=== PATIENT | male | born 1940 | race Caucasian/White ===

== ENCOUNTER 2023-07-10 19:17 | Inpatient (IN) | payer MEDICARE, SELFPAY ==
[2023-07-10] VITALS (22 sets, daily range): BP systolic 95–115; BP diastolic 56–82; PULSE 89–105; RESP 18–26; TEMP 37.1–37.9; O2SAT 89–95; BMI 23.4
--- NOTE | 2023-07-10 19:42 | XR_ITS ---
Patient: BRIAN MARTELL Facility:?[facility] Patient ID:?[id number] Site Patient ID:?[id number]. Site :?[id number] Study:?XRay-Chest PA and lateral-07/10/2023 9:29:17 PM Ordering Physician:Deon Monsivais Final Report: Indication: Fever of unknown origin Technique: Two views of the chest Comparison: None Findings/Impression: No acute cardiopulmonary process detected. Dictated by Theodore Henriquez MD @ 07/10/2023 9:45:44 PM Signed by:?Theodore Henriquez MD @07/10/2023 9:45:44 PM (Electronic Signature)
--- NOTE | 2023-07-10 19:44 | ED.GENADULT ---
HPI - General Adult General Chief complaint: Shortness of Breath/Dyspnea Stated complaint: Lung infection, lethargy, dehydrated Time Seen by Provider: 07/10/23 19:18 Source: patient Limitations: no limitations History of Present Illness HPI narrative: 82-year-old male brought in by his son and [id number] for weakness. His son states that he had to get him out of his bed today to come the hospital because he did not get out of bed all day long. Patient has been sick since the end of May with upper respiratory symptoms, productive cough and weakness. Per his son he was treated with a a steroid and an antibiotic-appears to have been doxycycline, and did not get better. He return for re-evaluation and the provider reordered more doxycycline and added azithromycin. This was 2 days ago. In the last 2 days he has continued to get worse. He has very little appetite. He lives with his daughter who is not here today. He has been having fevers, last 1 was 102 earlier today. Patient gets his care at [facility]. The last time they were there there was a long ER wait so therefore family brought him here today. His past medical history is significant for hypertension, COPD, GERD, esophagitis, hyperlipidemia, chronic anemia, hypertrophy of the prostate, cervicalgia. Related Data Home Medications Medication Instructions Recorded Confirmed atenolol 50 mg tablet 50 mg PO DAILY 07/10/23 07/10/23 loratadine 10 mg tablet (Claritin) 10 mg PO DAILY 07/10/23 07/10/23 losartan 100 mg tablet (Cozaar) 100 mg PO DAILY 07/10/23 07/10/23 omeprazole 20 mg capsule,delayed 20 mg PO DAILY 07/10/23 07/10/23 release simvastatin 20 mg tablet 20 mg PO DAILY 07/10/23 07/10/23 Allergies Allergy/AdvReac Type Severity Reaction Status Date / Time aspirin Allergy Unknown Verified 07/10/23 19:27 Penicillins Allergy Unknown Verified 07/10/23 19:27 Review of Systems Status of ROS: Reports: 10 or more systems reviewed and unremarkable except as noted in History and below Exam Narrative: Exam Narrative: Thin, frail elderly patient in no acute distress. Answers questions appropriately, cooperative. Mood and affect are appropriate. Thoughts are goal oriented and rational. No tangential or magical thinking noted. Patient speaks in full sentences without needing to catch his breath. HEENT: Normocephalic atraumatic. Pupils are equally round reactive to light. Extraocular muscles are intact. Conjunctivae are moist without any icterus noted. Dry mucous membranes. Cardiovascular: Heart is regular rate and rhythm S1 and S2 are present without any murmurs. Lungs: Decreased breath sounds bilaterally. Patient takes deep breaths without discomfort. Abdomen: Soft and nontender nondistended with normal bowel sounds. No guarding or rebound. He does have a nontender soft mass just distal to the suprapubic area. Extremities: Bilateral lower extremities are without edema. Skin: Well perfused without any obvious rashes. Back: Normal appearance. He has some mild skin breakdown of the intergluteal cleft. Const: Vital Signs, click to edit/add: Vital Signs - 24 hr 07/10/23 19:22 07/10/23 20:08 07/10/23 20:21 Temperature 98.7 F Pulse Rate 100 96 Pulse Rate [Pulse Oximeter] 105 H Respiratory Rate 26 H Blood Pressure Blood Pressure [Le ft Upper Arm] 106/82 Pulse Oximetry 94 94 95 Oxygen Delivery Me thod Room Air 07/10/23 20:30 07/10/23 20:45 07/10/23 21:18 Temperature Pulse Rate 99 95 99 Pulse Rate [Pulse Oximeter] Respiratory Rate Blood Pressure 101/75 Blood Pressure [Le ft Upper Arm] Pulse Oximetry 94 94 93 Oxygen Delivery Me thod 07/10/23 21:19 07/10/23 21:30 07/10/23 21:34 Temperature Pulse Rate 101 H 90 90 Pulse Rate [Pulse Oximeter] Respiratory Rate Blood Pressure 105/59 L Blood Pressure [Le ft Upper Arm] Pulse Oximetry 93 91 90 Oxygen Delivery Me thod 07/10/23 21:35 07/10/23 21:45 07/10/23 22:00 Temperature Pulse Rate 89 99 99 Pulse Rate [Pulse Oximeter] Respiratory Rate Blood Pressure Blood Pressure [Le ft Upper Arm] Pulse Oximetry 89 90 92 Oxygen Delivery Me thod 07/10/23 22:01 07/10/23 22:15 07/10/23 22:30 Temperature Pulse Rate 99 95 93 Pulse Rate [Pulse Oximeter] Respiratory Rate Blood Pressure 95/56 L Blood Pressure [Le ft Upper Arm] Pulse Oximetry 91 91 90 Oxygen Delivery Me thod 07/10/23 22:32 07/10/23 22:57 07/10/23 23:00 Temperature Pulse Rate 92 90 90 Pulse Rate [Pulse Oximeter] Respiratory Rate Blood Pressure 115/62 Blood Pressure [Le ft Upper Arm] Pulse Oximetry 90 91 90 Oxygen Delivery Me thod 07/10/23 23:02 Temperature Pulse Rate Pulse Rate [Pulse Oximeter] Respiratory Rate Blood Pressure 105/73 Blood Pressure [Le ft Upper Arm] Pulse Oximetry Oxygen Delivery Me thod Course Course ED Course: IV is established and patient is started on normal saline. EKG, read by me, shows sinus tachycardia with a pulse of 102. CBC shows a white count of 19.76, hemoglobin 13.3, platelet count is 330. Sodium potassium were unremarkable. BUN 34, creatinine is 1.2. Glucose is 134. lactate is elevated at 2.6. His AST is elevated at 393, ALT is 216, alkaline phosphatase is 187. Total bili is elevated at 2.4, direct bili elevated at 1.3. Troponin is elevated at 0.16. Triple swab is negative. CRP is markedly elevated at 34.8. UA does not show evidence of infection. Blood cultures were drawn. Vancomycin was started. Chest abdomen and pelvic was done: No evidence of pneumonia, PE or intra-abdominal infection. He does have a possible hernia noted. However, this does not cause him any discomfort on physical exam. Repeat troponin elevated at 0.18 and repeat lactate improved. Consulted with Dr. Huitron who is in agreement with admission. Vital Signs Vital signs: Initial Vital Signs Temperature 98.7 F 07/10/23 19:22 Temperature Source Temporal Artery Scan 07/10/23 19:22 Pulse Rate 105 H 07/10/23 19:22 Respiratory Rate 26 H 07/10/23 19:22 Blood Pressure 106/82 07/10/23 19:22 Blood Pressure Mean 90 07/10/23 19:22 Blood Pressure Position Sitting 07/10/23 19:22 Pulse Oximetry 94 07/10/23 19:22 Oxygen Delivery Method Room Air 07/10/23 19:22 Vital Signs Temperature 98.7 F 07/10/23 19:22 Pulse Rate 105 H 07/10/23 19:22 Respiratory Rate 26 H 07/10/23 19:22 Blood Pressure 106/82 07/10/23 19:22 Pulse Oximetry 94 07/10/23 19:22 Oxygen Delivery Method Room Air 07/10/23 19:22 Temperature 98.7 F 07/10/23 19:22 Pulse Rate 90 07/10/23 23:00 Respiratory Rate 26 H 07/10/23 19:22 Blood Pressure 105/73 07/10/23 23:02 Pulse Oximetry 90 07/10/23 23:00 Oxygen Delivery Method Room Air 07/10/23 19:22 Medications Administered Medications: Discontinued Medications Generic Name Dose Route Start Last Admin Trade Name Freq PRN Reason Stop Dose Admin Sodium Chloride 500 mls @ 500 mls/hr 07/10/23 19:42 07/10/23 22:12 0.9 % Sodium Chloride 500 Ml IV 07/10/23 20:41 Not Given .Q1H ONE Sodium Chloride 1,000 mls @ 1,000 mls/hr 07/10/23 20:30 07/10/23 21:25 0.9 % Sodium Chloride 1000 Ml IV 07/10/23 21:29 Infused .Q1H NEYMAR Infusion Vancomycin HCl 1,250 mg/ 512.5 mls @ 256.25 mls/hr 07/10/23 20:24 07/10/23 21:59 Sodium Chloride IVPB 07/10/23 20:25 256.25 mls/hr ONCE ONE Administration Protocol Sodium Chloride 500 mls @ 500 mls/hr 07/10/23 22:10 07/10/23 22:20 0.9 % Sodium Chloride 500 Ml IV 07/10/23 23:09 500 mls/hr .Q1H ONE Administration Medical Decision Making MDM Narrative Medical decision making narrative: 82-year-old male presenting with signs of sepsis, fever of unknown origin. Patient will be admitted for further management. Of note, blood and urine cultures are pending at this time. Lab Data Lab results reviewed: Yes I reviewed the patient's lab results Labs: Lab Results 07/10/23 07/10/23 07/10/23 Range/Units 19:40 21:39 21:50 WBC 19.76 H (4.50-11.00) K/uL RBC 4.38 (4.30-5.90) m/uL Hgb 13.3 L (13.5-17.5) gm/dL Hct 40.0 (37.0-53.0) % MCV 91 (80-100) fL MCH 30 (26-34) pg MCHC 33 (32-36) gm/dL RDW Coeff of Marcell 14.1 (11.5-15.5) % Plt Count 330 (140-440) K/uL Neut % (Auto) 75.8 H (42.0-72.0) % Lymph % (Auto) 19.1 L (20-44) % [place] % (Auto) 4.1 (0.0-11.0) % Eos % (Auto) 0.4 (0.0-7.0) % Baso % (Auto) 0.2 (0.0-3.0) % Neut # (Auto) 15.00 H (1.7-7.0) K/uL Lymph # (Auto) 3.80 H (0.90-2.90) K/uL [place] # (Auto) 0.80 (0.00-0.90) K/UL Eos # (Auto) 0.10 (0.00-0.50) K/uL Baso # (Auto) 0.00 (0.00-0.30) K/uL Abs Immat Gran (auto) 0.10 (0.00-0.30) K/uL Imm/Tot Granulo (auto) 0.4 % Sodium 140 (135-149) mmol/L Potassium 4.2 (3.6-5.1) mmol/L Chloride 103 (96-114) mmol/L Carbon Dioxide 27 (20-32) mmol/L Anion Gap 10 (7-15) mEq/L BUN 34 H (7-30) mg/dL Creatinine 1.2 (0.5-1.5) mg/dL Estimated GFR 61 ml/min Glucose 134 H (60-115) mg/dL Lactate 2.6 H 1.2 (0.5-1.9) mmol/L Calcium 10.0 (8.4-10.6) mg/dL Total Bilirubin 2.4 H (0.1-1.5) mg/dL Direct Bilirubin 1.3 H (0.0-0.5) mg/dL AST 393 H (12-35) U/L ALT 216 H (4-50) U/L Alkaline Phosphatase 187 H (40-150) U/L Troponin I 0.16 H* 0.18 H* (0.01-0.04) ng/mL C-Reactive Protein 34.8 H (0.5-1.0) mg/dL Total Protein 8.5 H (6.0-8.3) g/dL Albumin 4.2 (3.3-5.0) g/dL Lipase 146 (23-300) U/L Urine Color [place] A (Yellow) Urine Appearance Clear (Clear) Urine pH 5.5 (5.0-8.5) Ur Specific [place] 1.025 (1.000-1.030) Urine Protein 2+ A (Negative) Urine Glucose (UA) Negative (Negative) Urine Ketones 1+ A (Negative) Urine Blood Negative (Negative) Urine Nitrite Negative (Negative) Urine Bilirubin 1+ A (Negative) Urine Urobilinogen 1.0 (0.2-1.0) Ur Leukocyte Esterase Negative (Negative) Urine RBC 0-2 (0-2) Urine WBC 0-2 (0-5) Ur Squamous Epith Cells Many A (None-Few) Urine Bacteria None (None) Urine Mucus Many A (None) Ethyl Alcohol < 0.01 L (0.01-0.03) % SARS-CoV-2 (PCR) Negative SARS-CoV-2 (Negative) Influenza Type A (PCR) Negative PCR FLU A (Negative) Influenza Type B (PCR) Negative PCR FLU B (Negative) RSV (PCR) Negative PCR RSV (Negative) Imaging Data CT Chest/Ab/Pelvis: Attestation: I have reviewed the pertinent imaging results. Radiologist's impression: CTA of the chest and postcontrast CT of the abdomen and pelvis with multiplanar reformats following 95 mL Isovue 370 IV. Comparison: None Findings: Chest: Pulmonary arteries: Significant motion degradation. No large or central pulmonary embolism is appreciated. Lungs: No consolidation. No effusion. No pneumothorax. Apical predominant moderate centrilobular and paraseptal emphysema. Basilar predominant fibrotic changes. Mediastinum: No acute abnormality appreciated. Calcified atherosclerosis. Lymph nodes: No gross lymphadenopathy. Soft tissues: No acute abnormality appreciated. Bones: No acute abnormality appreciated. Abdomen and Pelvis: Hepatobiliary: No significant parenchymal abnormality is appreciated. Spleen: Unremarkable. Pancreas: No acute abnormality appreciated. Adrenal glands: No acute abnormality appreciated. Kidneys: No significant parenchymal abnormality appreciated. No visualized calculi. No hydronephrosis. Bowel: Diverticulosis without evidence of acute diverticulitis. No obstruction. No focal perienteric or pericolonic stranding is appreciated. The appendix is visualized and appears unremarkable. Vascular: No acute abnormality appreciated. Calcified atherosclerosis. Lymph nodes: No gross lymphadenopathy. Peritoneum: No free air. No free fluid. : No acute abnormality appreciated. Soft tissues: There is a large edematous fatty lesion, possibly an incarcerated hernia, noted along the left ventral pelvis anterior to the pubic symphysis measuring 8.3 x 4.1 centimeters. Bones: No acute fracture. No lytic or blastic lesion. Degenerative changes of the spine and pelvis. Impression: 1. Significant respiratory motion degradation through the chest. No large or central PE is present. 2. There is a large edematous fatty lesion along the ventral pelvis anterior to the pubic symphysis measuring up to 8.3 centimeters, possibly an incarcerated hernia common no prior examination available for comparison. 3. Additional chronic findings as above with no other acute abnormality appreciated. Chest x-ray: Attestation: I have reviewed the pertinent imaging results. Radiologist's impression: Indication: Fever of unknown origin Technique: Two views of the chest Comparison: None Findings/Impression: No acute cardiopulmonary process detected. ECG Data Attestation: I personally reviewed and interpreted this ECG as follows: Discharge Plan Discharge Prescriptions: No Action atenolol 50 mg tablet 50 mg PO DAILY simvastatin 20 mg tablet 20 mg PO DAILY omeprazole 20 mg capsule,delayed release(DR/EC) 20 mg PO DAILY losartan [Cozaar] 100 mg tablet 100 mg PO DAILY loratadine [Claritin] 10 mg tablet 10 mg PO DAILY
[2023-07-10 19:51] LABS: Lactate* 2.6 mmol/L (0.5-1.9)
[2023-07-10 19:52] LABS: Basophils Percent Auto 0.2 % (0.0-3.0); Eosinophils Percent Auto 0.4 % (0.0-7.0); Hemoglobin* 13.3 gm/dL (13.5-17.5); Immature Granulocytes Pct Auto 0.4 %; Lymphocytes Percent Auto 19.1 % (20-44); Mean Corpuscular HGB Conc 33 gm/dL (32-36); Mean Corpuscular Hemoglobin 30 pg (26-34); Mean Corpuscular Volume 91 fL (80-100); Monocytes Percent Auto 4.1 % (0.0-11.0); Neutrophils Percent Auto 75.8 % (42.0-72.0); Platelet Count* 330 K/uL (140-440); RDW Coefficient of Variation % 14.1 % (11.5-15.5); Red Blood Count 4.38 m/uL (4.30-5.90); White Blood Count* 19.76 K/uL (4.50-11.00)
[2023-07-10 19:55] LABS: Slide Review Reflex No
[2023-07-10 20:09] LABS: Albumin* 4.2 g/dL (3.3-5.0); Chloride* 103 mmol/L (96-114)
[2023-07-10 20:10] LABS: Potassium* 4.2 mmol/L (3.6-5.1); Sodium* 140 mmol/L (135-149)
[2023-07-10 20:12] LABS: Alkaline Phosphatase* 187 U/L (40-150); Anion Gap 10 mEq/L (7-15); Aspartate Amino Transferase* 393 U/L (12-35); Bilirubin Direct* 1.3 mg/dL (0.0-0.5); Bilirubin Total* 2.4 mg/dL (0.1-1.5); Carbon Dioxide* 27 mmol/L (20-32); Creatinine* 1.2 mg/dL (0.5-1.5); Estimated Glomerular Filt Rate 61 ml/min; Total Protein* 8.5 g/dL (6.0-8.3)
[2023-07-10 20:13] LABS: Alanine Aminotransferase* 216 U/L (4-50); Blood Urea Nitrogen* 34 mg/dL (7-30); Glucose* 134 mg/dL (60-115); Lipase* 146 U/L (23-300)
[2023-07-10 20:16] LABS: Ethanol* < 0.01 % (0.01-0.03)
--- NOTE | 2023-07-10 20:28 | CT_ITS ---
Patient: BRIAN MARTELL Facility:?[facility] Patient ID:?[id number] Site Patient ID:?[id number]. Site :?[id number] Study:?CT-Chest/Abd/Pelvis with PE protocol 95cc [id number]/16/2024 9:28:18 PM Ordering Physician:Deon Monsivais Final Report: Indication: Fever of unknown origin Technique: CTA of the chest and postcontrast CT of the abdomen and pelvis with multiplanar reformats following 95 mL Isovue 370 IV. Comparison: None Findings: Chest: Pulmonary arteries: Significant motion degradation. No large or central pulmonary embolism is appreciated. Lungs: No consolidation. No effusion. No pneumothorax. Apical predominant moderate centrilobular and paraseptal emphysema. Basilar predominant fibrotic changes. Mediastinum: No acute abnormality appreciated. Calcified atherosclerosis. Lymph nodes: No gross lymphadenopathy. Soft tissues: No acute abnormality appreciated. Bones: No acute abnormality appreciated. Abdomen and Pelvis: Hepatobiliary: No significant parenchymal abnormality is appreciated. Spleen: Unremarkable. Pancreas: No acute abnormality appreciated. Adrenal glands: No acute abnormality appreciated. Kidneys: No significant parenchymal abnormality appreciated. No visualized calculi. No hydronephrosis. Bowel: Diverticulosis without evidence of acute diverticulitis. No obstruction. No focal perienteric or pericolonic stranding is appreciated. The appendix is visualized and appears unremarkable. Vascular: No acute abnormality appreciated. Calcified atherosclerosis. Lymph nodes: No gross lymphadenopathy. Peritoneum: No free air. No free fluid. : No acute abnormality appreciated. Soft tissues: There is a large edematous fatty lesion, possibly an incarcerated hernia, noted along the left ventral pelvis anterior to the pubic symphysis measuring 8.3 x 4.1 centimeters. Bones: No acute fracture. No lytic or blastic lesion. Degenerative changes of the spine and pelvis. Impression: 1. Significant respiratory motion degradation through the chest. No large or central PE is present. 2. There is a large edematous fatty lesion along the ventral pelvis anterior to the pubic symphysis measuring up to 8.3 centimeters, possibly an incarcerated hernia common no prior examination available for comparison. 3. Additional chronic findings as above with no other acute abnormality appreciated. Please note that all CT scans at this facility use dose modulation, iterative reconstruction, and/or weight-based dosing when appropriate to reduce radiation dose to as low as reasonably achievable. Dictated by Theodore Henriquez MD @ 07/10/2023 9:44:51 PM Signed by:?Theodore Henriquez MD @07/10/2023 9:44:51 PM (Electronic Signature)
[2023-07-10 20:29] LABS: PCR FLU A Negative PCR FLU A (Negative); PCR FLU B Negative PCR FLU B (Negative); PCR RSV Negative PCR RSV (Negative); SARS PCR* Negative SARS-CoV-2 (Negative); Troponin I* 0.16 ng/mL (0.01-0.04)
--- NOTE | 2023-07-10 20:34 | ED.NURSE ---
call from lab, trop 0.16, dr webb and care nurse updated
[2023-07-10] MEDS: 0.9 % SODIUM CHLORIDE 1000 ml 1,000 ML IV (20:35)
[2023-07-10 20:42] LABS: C Reactive Protein* 34.8 mg/dL (0.5-1.0)
[2023-07-10 21:42] LABS: Lactate* 1.2 mmol/L (0.5-1.9)
[2023-07-10 22:05] LABS: Appearance Urine Clear (Clear); Bilirubin Urine 1+ (Negative); Blood Urine Negative (Negative); Color Urine Orange (Yellow); Glucose Urine Negative (Negative); Ketones Urine 1+ (Negative); Leukocyte Esterase Urine Negative (Negative); Nitrite Urine Negative (Negative); Protein Urine 2+ (Negative); Specific Gravity Urine 1.025 (1.000-1.030); pH Urine 5.5 (5.0-8.5)
[2023-07-10 22:15] LABS: Troponin I* 0.18 ng/mL (0.01-0.04)
[2023-07-10 22:16] LABS: Mucus Urine Many; RBC Urine 0-2 (0-2); Squamous Epithelial Cell Urine Many (None-Few); WBC Urine 0-2 (0-5)
[2023-07-10] MEDS: 0.9 % SODIUM CHLORIDE 500 ML 500 ML IV (22:20)
--- NOTE | 2023-07-10 23:12 | P.IMHP_ITS ---
Hospitalist- H&P: HPI History of Present Illness Date Seen: 07/10/23 Chief complaint: Lung infection, lethargy, dehydrated Narrative: Brian Martell is a 82 year old male with hypertension and hyperlipidemia and history of liposarcoma admitted to the hospital with a 3 to four-week history of fatigue, weakness, cough, dyspnea, loss of appetite and fever in the last day or 2. Patient was seen in the [place] [facility] on June 21 2023 with cough, congestion, fatigue, weakness, poor appetite that started about 3 days prior to going to clinic. Testing for influenza and COVID was negative. At that time he was diagnosed with a respiratory infection and treated with doxycycline 100 mg b.i.d., prednisone 40 mg for 5 days followed by 20 mg for 5 days and albuterol inhaler. He had no improvement in his symptoms and return to clinic on July 07 where he had refill of the doxycycline prescription. At that time he had a chest x-ray that showed no acute infiltrate. In the last 2 days he is gotten weaker to the point he was unable to get out of bed today he has also developed fever in the last 1-2 days. His jthznebu-mi-tke measured a temperature of a 102.4 ? F today. He reports still having some cough, sometimes productive. He still reports being short of breath prominently fatigued and very weak. He has no appetite. He is not having any chest pain. He is not having any abdominal pain. He reports he is able to eat although he has some pain in his throat with swallowi ng particularly solid foods. He is eating a soft diet and able to swallow it but reports that he eats very little and then he feels full. He is not vomiting. Bowel movements are normal although he does occasionally have a loose stool. He is not having any urinary symptoms. Does not have a skin rash. He has had significant weight loss in the last 3 weeks. On June 21 he weighed 70.9 kg. Today he weighs 65.8 kg, a 5 kg weight loss in 3 weeks. He has a diagnosis of COPD. He he was previously a smoker having quit in 1996. He has not been on chronic therapy for COPD. He has abnormal transaminases and bilirubin. He denies any abdominal pain, just very poor appetite. He drinks 2 beers per day. He reports no alcohol consumption in the last couple weeks. No recent travel history. No previous history of jaundice or liver disease. No recent travel or other exposures. Review of Systems Narrative: History is unremarkable except as noted above [facility] Medical History (Updated 07/10/23 @ 23:41 by Karthik Huitron MD) BPH (benign prostatic hyperplasia) ?N40.0 - Benign prostatic hyperplasia without lower urinary tract symptoms (ICD-10) Hyperlipidemia ?E78.5 - Hyperlipidemia, unspecified (ICD-10) Hypertension ?I10 - Essential (primary) hypertension (ICD-10) COPD (chronic obstructive pulmonary disease) ?J44.9 - Chronic obstructive pulmonary disease, unspecified (ICD-10) Surgical History (Updated 07/10/23 @ 23:35 by Karthik Huitron MD) History of colonoscopy ?Z98.890 - Other specified postprocedural states (ICD-10) History of unilateral orchiectomy ?Z90.79 - Acquired absence of other genital organ(s) (ICD-10) Family History (Updated 07/10/23 @ 23:33 by Karthik Huitron MD) Brother Prostate cancer Daughter Asthma Father Lung cancer Mother Asthma Social History (Updated 07/10/23 @ 23:36 by Karthik Huitron MD) Narrative: He lives in [place]. His daughter lives with him. He presents to the emergency department with his son and daughter in-law. Former history of smoking having quit in 1996. He drinks 2 beers a day. He was functioning independently up until the last few days when he became too weak. Meds Home Medications and Allergies Home Medications Medication Instructions Recorded Confirmed Type atenolol 50 mg tablet 50 mg PO DAILY 07/10/23 07/10/23 History loratadine 10 mg tablet (Claritin) 10 mg PO DAILY 07/10/23 07/10/23 History losartan 100 mg tablet (Cozaar) 100 mg PO DAILY 07/10/23 07/10/23 History omeprazole 20 mg capsule,delayed 20 mg PO DAILY 07/10/23 07/10/23 History release simvastatin 20 mg tablet 20 mg PO DAILY 07/10/23 07/10/23 History Allergies Allergy/AdvReac Type Severity Reaction Status Date / Time aspirin Allergy Unknown Verified 07/10/23 19:27 Penicillins Allergy Unknown Verified 07/10/23 19:27 Exam Narrative: Exam Narrative: He is alert and appears in no distress. He gives his own history. Eyes are normal. Oropharynx with dry mucous membranes. Otherwise normal. Neck is supple without mass or adenopathy. No tenderness. Respirations are clear to auscultation. He has diminished breath sounds without wheezing rales or rhonchi. Cardiovascular: S1, S2, regular rate and rhythm. No murmur gallop or rub. Abdomen: Bowel sounds active. Abdomen is soft without tenderness or mass. He does have a soft tissue mass in the pre pubic area just to the left of midline. Several cm in diameter. External genitalia unremarkable except for history of orchiectomy. He has no lower extremity edema. He has intact pedal pulses. Strength testing shows weakness and pain with strength testing of the left knee. Left knee is weak and painful with active extension and flexion. Otherwise nonfocal motor exam. Const: Vital Signs, click to edit/add: Vital Signs - 24 hr 07/10/23 19:22 07/10/23 20:08 07/10/23 20:21 Temperature 98.7 F Pulse Rate 100 96 Pulse Rate [Pulse Oximeter] 105 H Respiratory Rate 26 H Blood Pressure Blood Pressure [Le ft Upper Arm] 106/82 Pulse Oximetry 94 94 95 Oxygen Delivery Me thod Room Air 07/10/23 20:30 07/10/23 20:45 07/10/23 21:18 Temperature Pulse Rate 99 95 99 Pulse Rate [Pulse Oximeter] Respiratory Rate Blood Pressure 101/75 Blood Pressure [Le ft Upper Arm] Pulse Oximetry 94 94 93 Oxygen Delivery Me thod 07/10/23 21:19 07/10/23 21:30 07/10/23 21:34 Temperature Pulse Rate 101 H 90 90 Pulse Rate [Pulse Oximeter] Respiratory Rate Blood Pressure 105/59 L Blood Pressure [Le ft Upper Arm] Pulse Oximetry 93 91 90 Oxygen Delivery Me thod 07/10/23 21:35 07/10/23 21:45 07/10/23 22:00 Temperature Pulse Rate 89 99 99 Pulse Rate [Pulse Oximeter] Respiratory Rate Blood Pressure Blood Pressure [Le ft Upper Arm] Pulse Oximetry 89 90 92 Oxygen Delivery Me thod 07/10/23 22:01 07/10/23 22:15 Temperature Pulse Rate 99 95 Pulse Rate [Pulse Oximeter] Respiratory Rate Blood Pressure 95/56 L Blood Pressure [Le ft Upper Arm] Pulse Oximetry 91 91 Oxygen Delivery Me thod Documenting provider has reviewed patient's vital signs: yes Hospitalist - H&P: Result Labs Labs: Short CBC 07/10/23 Range/Units 19:40 WBC 19.76 H (4.50-11.00) K/uL Hgb 13.3 L (13.5-17.5) gm/dL Hct 40.0 (37.0-53.0) % Plt Count 330 (140-440) K/uL BMP 07/10/23 19:40 Sodium 140 Potassium 4.2 Chloride 103 Carbon Dioxide 27 BUN 34 H Creatinine 1.2 Glucose 134 H Calcium 10.0 Cardiac Enzymes 07/10/23 07/10/23 Range/Units 19:40 21:39 Troponin I 0.16 H* 0.18 H* (0.01-0.04) ng/mL Liver Function 07/10/23 Range/Units 19:40 Total Bilirubin 2.4 H (0.1-1.5) mg/dL Direct Bilirubin 1.3 H (0.0-0.5) mg/dL AST 393 H (12-35) U/L ALT 216 H (4-50) U/L Alkaline Phosphatase 187 H (40-150) U/L Albumin 4.2 (3.3-5.0) g/dL Urine 07/10/23 Range/Units 21:50 Urine Color [place] A (Yellow) Urine Appearance Clear (Clear) Urine pH 5.5 (5.0-8.5) Ur Specific [place] 1.025 (1.000-1.030) Urine Protein 2+ A (Negative) Urine Glucose (UA) Negative (Negative) Imaging CT Chest/Ab/Pelvis: Radiologist's impression: Patient: BRIAN MARTELL Facility:?[facility] Patient ID:?[id number] Site Patient ID:?[id number]. Site :?[id number] Study:?CT Chest/Abd/Pelvis with PE protocol 95cc [id number]/16/2024 9:28:18 PM Ordering Physician:Deon Monsivais Final Report: Indication: Fever of unknown origin Technique: CTA of the chest and postcontrast CT of the abdomen and pelvis with multiplanar reformats following 95 mL Isovue 370 IV. Comparison: None Findings: Chest: Pulmonary arteries: Significant motion degradation. No large or central pulmonary embolism is appreciated. Lungs: No consolidation. No effusion. No pneumothorax. Apical predominant moderate centrilobular and paraseptal emphysema. Basilar predominant fibrotic changes. Mediastinum: No acute abnormality appreciated. Calcified atherosclerosis. Lymph nodes: No gross lymphadenopathy. Soft tissues: No acute abnormality appreciated. Bones: No acute abnormality appreciated. Abdomen and Pelvis: Hepatobiliary: No significant parenchymal abnormality is appreciated. Spleen: Unremarkable. Pancreas: No acute abnormality appreciated. Adrenal glands: No acute abnormality appreciated. Kidneys: No significant parenchymal abnormality appreciated. No visualized calculi. No hydronephrosis. Bowel: Diverticulosis without evidence of acute diverticulitis. No obstruction. No focal perienteric or pericolonic stranding is appreciated. The appendix is visualized and appears unremarkable. Vascular: No acute abnormality appreciated. Calcified atherosclerosis. Lymph nodes: No gross lymphadenopathy. Peritoneum: No free air. No free fluid. : No acute abnormality appreciated. Soft tissues: There is a large edematous fatty lesion, possibly an incarcerated hernia, noted along the left ventral pelvis anterior to the pubic symphysis measuring 8.3 x 4.1 centimeters. Bones: No acute fracture. No lytic or blastic lesion. Degenerative changes of the spine and pelvis. Impression: 1. Significant respiratory motion degradation through the chest. No large or central PE is present. 2. There is a large edematous fatty lesion along the ventral pelvis anterior to the pubic symphysis measuring up to 8.3 centimeters, possibly an incarcerated hernia common no prior examination available for comparison. 3. Additional chronic findings as above with no other acute abnormality appreci ated. Assessment and Plan Assessment and plan (1) Fever: Problem comment: No obvious source for the fever except possibly hepato-biliary. Due to elevated lactate, CRP, white blood count, fever will obtain blood cultures and start empiric antibiotics. Status: Acute (2) Abnormal liver enzymes: Problem comment: Obtain ultrasound. Possible MRCP. Trend LFTs. Status: Acute (3) Elevated troponin: Problem comment: No chest pain Status: Acute (4) Weight loss: Problem comment: 5 kg weight loss in 3 weeks Status: Acute (5) Soft tissue mass: Problem comment: Pre pubic. Possibly chronic Status: Acute (6) Weakness: Problem comment: Unable to stand and walk independently. Likely related to recent illness. Status: Acute (7) Dysphagia: Problem comment: Recent history of pain in his throat with swallowing. Status: Acute (8) COPD (chronic obstructive pulmonary disease): Problem comment: Due to remote history of cigarette smoking. Quit in 1996. 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 Three surgeries for this. Urologist signed off last November 2022 after no recurrence in 2 years. 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 Two further surgeries for local recurrence. Status: Acute (13) BPH (benign prostatic hyperplasia): Status: Acute Plan 82-year-old male presents with 3 and half week history of progressive illness with prominent fatigue, weakness, loss of appetite, loss of weight, cough, dyspnea, fever. Now found to have abnormal liver enzymes and elevated troponin. I favor hepatobiliary disease as the most likely explanation for his illness. Continue to evaluate and follow multiple problems noted above. Total Time Spent Total Time Spent: Total time spent today is 80 minutes, 50 minutes in coordination of care discussing with patient, family and other providers evaluation of fever, fatigue, weakness, weight loss and abnormal liver tests
[2023-07-10] MEDS: 0.9 % SODIUM CHLORIDE 1000 ml 1,000 ML 150 ML IV (23:20)
[2023-07-11] VITALS (8 sets, daily range): BP systolic 88–120; BP diastolic 51–81; PULSE 72–92; RESP 16–20; TEMP 36.1–37.7; O2SAT 88–95
[2023-07-11] MEDS: ERTAPENEM 1 GM in 0.9 % SODIUM CHLORIDE Mini-bag 100 ML IVPB (00:26)
[2023-07-11] MEDS: 5 % DEXTROSE IN LAC RINGER'S 1,000 ML 125 ML IV ×3 (00:27→17:11)
--- NOTE | 2023-07-11 05:16 | PC.NURSE ---
Shift note: Pt admitted to the unit on admission bed from ED, conscious and alert accompanied by son and daughter-myles. Pt appeared weak and tired and cough intermittently. Fever of 100.2 recorded, other vital signs were stable. Treatment given as prescribed. Pt voided about 300ml of clear urine at 0230. Pt had adequate sleep. Complained of mild pain of 3/10 to the left knee. Ambulated with A1, walker and GB to the BR. Ensure was given and pt was able to drink about 75%. Temperature decreased to 98.3 at 0300.
[2023-07-11 06:53] LABS: Lactate* 0.8 mmol/L (0.5-1.9)
[2023-07-11 07:12] LABS: Basophils Percent Auto 0.2 % (0.0-3.0); Eosinophils Percent Auto 0.4 % (0.0-7.0); Hemoglobin* 9.5 gm/dL (13.5-17.5); Immature Granulocytes Pct Auto 0.4 %; Lymphocytes Percent Auto 19.4 % (20-44); Mean Corpuscular HGB Conc 33 gm/dL (32-36); Mean Corpuscular Hemoglobin 30 pg (26-34); Mean Corpuscular Volume 92 fL (80-100); Monocytes Percent Auto 5.3 % (0.0-11.0); Neutrophils Percent Auto 74.3 % (42.0-72.0); Platelet Count* 247 K/uL (140-440); RDW Coefficient of Variation % 14.2 % (11.5-15.5); Red Blood Count 3.16 m/uL (4.30-5.90); White Blood Count* 13.45 K/uL (4.50-11.00)
[2023-07-11 07:21] LABS: Slide Review Reflex No
[2023-07-11 07:24] LABS: Albumin* 2.9 g/dL (3.3-5.0); Chloride* 109 mmol/L (96-114); Sodium* 140 mmol/L (135-149)
[2023-07-11 07:25] LABS: Potassium* 3.8 mmol/L (3.6-5.1)
[2023-07-11 07:27] LABS: Alkaline Phosphatase* 121 U/L (40-150); Anion Gap 6 mEq/L (7-15); Aspartate Amino Transferase* 222 U/L (12-35); Bilirubin Direct* 0.7 mg/dL (0.0-0.5); Bilirubin Total* 1.1 mg/dL (0.1-1.5); Blood Urea Nitrogen* 32 mg/dL (7-30); Carbon Dioxide* 25 mmol/L (20-32); Creatinine* 0.9 mg/dL (0.5-1.5); Est. Creatinine Clearance* 52.28; Estimated Glomerular Filt Rate 86 ml/min; Total Protein* 5.9 g/dL (6.0-8.3)
[2023-07-11 07:28] LABS: Alanine Aminotransferase* 152 U/L (4-50); Calcium* 8.3 mg/dL (8.4-10.6); Glucose* 156 mg/dL (60-115)
[2023-07-11 07:41] LABS: Troponin I* 0.11 ng/mL (0.01-0.04)
[2023-07-11 07:45] LABS: C Reactive Protein* 25.4 mg/dL (0.5-1.0)
--- NOTE | 2023-07-11 08:00 | US_ITS ---
Patient: BRIAN MARTELL Facility:?[facility] Patient ID:?[id number] Site Patient ID:?[id number] Site :?[id number] Study:?US-Abdomen GALLBLADDER-07/11/2023 12:27:42 AM Ordering Physician:?RYAN AQUINO Final Report: Indication: Fever, weight loss, abnormal LFTs Technique: Limited abdominal ultrasound. Evaluation of the gallbladder and common bile duct. Grayscale and color Doppler imaging utilized. Comparison: None Findings: Gallbladder: No stones or sludge. No wall thickening or adjacent fluid. Common bile duct: 5 mm. Impression: No acute sonographic abnormality of the gallbladder or common bile duct. Dictated by Theodore Henriquez MD @ 07/11/2023 12:36:03 AM Signed by:?Theodore Henriquez MD @07/11/2023 12:36:03 AM (Electronic Signature)
[2023-07-11] MEDS: OMEPRAZOLE 20 MG CAPSULE DR PO (08:51)
[2023-07-11] MEDS: atenoloL 50 MG TABLET 25 MG PO (08:52)
[2023-07-11] MEDS: SODIUM CHLORIDE 0.9 % (FLUSH) 10 ML SYRINGE 5 ML IVF ×2 (08:55→21:39)
[2023-07-11] MEDS: ACETAMINOPHEN 325 MG TABLET 650 MG PO (08:58)
[2023-07-11 09:53] LABS: Creatine Kinase* 77 U/L (54-186)
--- NOTE | 2023-07-11 13:30 | CT_ITS ---
Patient: BRIAN MARTELL Facility:?[facility] Patient ID:?[id number] Site Patient ID:?[id number]. Site :?1940 Study:?CT-Head W/O-07/11/2023 2:07:38 PM Ordering Physician:VIJAYA Final Report: Indication: Altered mental status, fever. Technique: Noncontrast CT of the head with multiplanar reconstruction utilizing bone and soft tissue algorithms. Comparison: None available. Findings: No acute intracranial hemorrhage. Scattered supratentorial white matter hypoattenuation typical of chronic small vessel ischemic changes. Mild diffuse parenchymal volume loss. No ventricular obstruction. Prominent left retro cerebellar CSF attenuating collection potentially representing an arachnoid cyst. Intact calvarium. Evidence of prior cataract surgery. The imaged paranasal sinuses and mastoid air cells are clear. Impression: 1. No acute intracranial abnormality. 2. Mild diffuse parenchymal volume loss and chronic small vessel ischemic changes. 3. Prominent left retrocerebellar CSF attenuating collection, not adequately characterized on CT but potentially representing an arachnoid cyst. Please note that all CT scans at this facility use dose modulation, iterative reconstruction, and/or weight-based dosing when appropriate to reduce radiation dose to as low as reasonably achievable. Dictated by Kenroy Martell MD @ 07/11/2023 2:40:18 PM Signed by:?Kenroy Martell MD @07/11/2023 2:40:18 PM (Electronic Signature)
--- NOTE | 2023-07-11 15:10 | P.IMPN_ITS ---
Progress Note: A&P Assessment and plan (1) Fever: Problem details: No obvious source for the fever except possibly hepato-biliary. Due to elevated lactate, CRP, white blood count, fever will obtain blood cultures and start empiric antibiotics. Status: Acute (2) Abnormal liver enzymes: Problem details: Ultrasound unremarkable. LFTs improving, acute hepatitis labs pending Status: Acute (3) Elevated troponin: Problem details: No chest pain Status: Acute (4) Weight loss: Problem details: 5 kg weight loss in 3 weeks Status: Acute (5) Soft tissue mass: Problem details: Pre pubic. Possibly chronic Status: Acute (6) Weakness: Problem details: Unable to stand and walk independently. Likely related to recent illness. Status: Acute (7) Dysphagia: Problem details: Recent history of pain in his throat with swallowing. Status: Acute (8) COPD (chronic obstructive pulmonary disease): Problem details: Due to remote history of cigarette smoking. Quit in 1996. 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 Urologist signed off last November 2022 after no recurrence in 2 years. Status: Chronic (10) Hypertension: Problem details: Hold losartan and reduce atenolol due to low blood pressure Status: Chronic (11) Hyperlipidemia: Problem details: Hold simvastatin due to abnormal liver enzymes Status: Chronic (12) BPH (benign prostatic hyperplasia): Status: Chronic Plan 83-year-old male with a 3 week history of fatigue, weakness, loss of appetite, loss of weight, cough, dyspnea, and fever was admitted 07/10/2023 for these and abnormal liver enzymes with elevated troponin. Troponin has peaked and liver enzymes are improving. Chest CT abdomen and pelvis, chest x-ray, and left upper quadrant ultrasound are fairly unremarkable with the exception of a pre pelvic mass. This does not appear to be an abscess and it is unclear, but likely unrelated to his current symptoms. He is on Zosyn and vanco, but again source of fevers is unclear. Head CT is obtained due to altered mental status and fevers without clear source, results above, essentially unremarkable. Will also obtain an echocardiogram to look for vegetations. Continue to treat with antibiotics and monitor for any new or worsening symptoms to help identify source. Continue PT and OT for weakness. Subjective Time Seen by Provider: 10:12 Date Seen: 07/11/23 Interval history: Krishan seems mildly confused, pleasant. He denies any complaints today. Exam Narrative: Exam Narrative: General: No acute distress. Awake, alert, oriented. No pallor. No jaundice. Oropharynx: Clear. Mucous membranes moist. Cardiovascular: Regular rate and rhythm. No murmurs, gallops, or rubs. Respiratory: Clear to auscultation bilaterally. No wheezes or crackles. Abdomen: Bowel sounds present. Soft, nondistended, nontender. Pre pubic mass, soft and mobile, just to the left of midline, oblong in shape, longer in the inf erior superior aspect. No overlying skin changes. Extremities: No pedal edema. Const: Vital Signs, click to edit/add: Vital Signs - 24 hr 07/10/23 19:22 07/10/23 20:08 07/10/23 20:21 Temperature 98.7 F Pulse Rate 100 96 Pulse Rate [Left P ulse Oximeter] Pulse Rate [Pulse Oximeter] 105 H Respiratory Rate 26 H Blood Pressure Blood Pressure [Le ft Arm] Blood Pressure [Le ft Upper Arm] 106/82 Blood Pressure [Ri ght Arm] Pulse Oximetry 94 94 95 Oxygen Delivery Me thod Room Air 07/10/23 20:30 07/10/23 20:45 07/10/23 21:18 Temperature Pulse Rate 99 95 99 Pulse Rate [Left P ulse Oximeter] Pulse Rate [Pulse Oximeter] Respiratory Rate Blood Pressure 101/75 Blood Pressure [Le ft Arm] Blood Pressure [Le ft Upper Arm] Blood Pressure [Ri ght Arm] Pulse Oximetry 94 94 93 Oxygen Delivery Me thod 07/10/23 21:19 07/10/23 21:30 07/10/23 21:34 Temperature Pulse Rate 101 H 90 90 Pulse Rate [Left P ulse Oximeter] Pulse Rate [Pulse Oximeter] Respiratory Rate Blood Pressure 105/59 L Blood Pressure [Le ft Arm] Blood Pressure [Le ft Upper Arm] Blood Pressure [Ri ght Arm] Pulse Oximetry 93 91 90 Oxygen Delivery Me thod 07/10/23 21:35 07/10/23 21:45 07/10/23 22:00 Temperature Pulse Rate 89 99 99 Pulse Rate [Left P ulse Oximeter] Pulse Rate [Pulse Oximeter] Respiratory Rate Blood Pressure Blood Pressure [Le ft Arm] Blood Pressure [Le ft Upper Arm] Blood Pressure [Ri ght Arm] Pulse Oximetry 89 90 92 Oxygen Delivery Me thod 07/10/23 22:01 07/10/23 22:15 07/10/23 22:30 Temperature Pulse Rate 99 95 93 Pulse Rate [Left P ulse Oximeter] Pulse Rate [Pulse Oximeter] Respiratory Rate Blood Pressure 95/56 L Blood Pressure [Le ft Arm] Blood Pressure [Le ft Upper Arm] Blood Pressure [Ri ght Arm] Pulse Oximetry 91 91 90 Oxygen Delivery Me thod 07/10/23 22:32 07/10/23 22:57 07/10/23 23:00 Temperature Pulse Rate 92 90 90 Pulse Rate [Left P ulse Oximeter] Pulse Rate [Pulse Oximeter] Respiratory Rate Blood Pressure 115/62 Blood Pressure [Le ft Arm] Blood Pressure [Le ft Upper Arm] Blood Pressure [Ri ght Arm] Pulse Oximetry 90 91 90 Oxygen Delivery Me thod 07/10/23 23:02 07/10/23 23:03 07/10/23 23:15 Temperature Pulse Rate 90 89 Pulse Rate [Left P ulse Oximeter] Pulse Rate [Pulse Oximeter] Respiratory Rate Blood Pressure 105/73 Blood Pressure [Le ft Arm] Blood Pressure [Le ft Upper Arm] Blood Pressure [Ri ght Arm] Pulse Oximetry 95 92 Oxygen Delivery Me thod 07/10/23 23:55 07/11/23 00:11 07/11/23 03:00 Temperature 100.2 F H 98.6 F Pulse Rate Pulse Rate [Left P ulse Oximeter] 90 81 Pulse Rate [Pulse Oximeter] Respiratory Rate 18 18 18 Blood Pressure Blood Pressure [Le ft Arm] 114/64 104/65 Blood Pressure [Le ft Upper Arm] Blood Pressure [Ri ght Arm] Pulse Oximetry 90 90 88 Oxygen Delivery Me thod Room Air Room Air Room Air 07/11/23 07:00 07/11/23 11:00 07/11/23 14:52 Temperature 97.1 F L 96.9 F L Pulse Rate Pulse Rate [Left P ulse Oximeter] 75 72 Pulse Rate [Pulse Oximeter] Respiratory Rate 16 16 Blood Pressure Blood Pressure [Le ft Arm] 88/60 L 105/51 L Blood Pressure [Le ft Upper Arm] Blood Pressure [Ri ght Arm] 100/81 Pulse Oximetry 92 95 Oxygen Delivery Me thod Room Air Room Air Documenting provider has reviewed patient's vital signs: yes Labs Labs: Laboratory Results - last 24 hr 07/10/23 07/10/23 07/10/23 19:40 21:39 21:50 WBC 19.76 H RBC 4.38 Hgb 13.3 L Hct 40.0 MCV 91 MCH 30 MCHC 33 RDW Coeff of Marcell 14.1 Plt Count 330 Neut % (Auto) 75.8 H Lymph % (Auto) 19.1 L [place] % (Auto) 4.1 Eos % (Auto) 0.4 Baso % (Auto) 0.2 Neut # (Auto) 15.00 H Lymph # (Auto) 3.80 H [place] # (Auto) 0.80 Eos # (Auto) 0.10 Baso # (Auto) 0.00 Abs Immat Gran (auto) 0.10 Imm/Tot Granulo (auto) 0.4 Sodium 140 Potassium 4.2 Chloride 103 Carbon Dioxide 27 Anion Gap 10 BUN 34 H Creatinine 1.2 Estimated Creat Clear Estimated GFR 61 Glucose 134 H Lactate 2.6 H 1.2 Calcium 10.0 Total Bilirubin 2.4 H Direct Bilirubin 1.3 H AST 393 H ALT 216 H Alkaline Phosphatase 187 H Total Creatine Kinase Troponin I 0.16 H* 0.18 H* C-Reactive Protein 34.8 H Total Protein 8.5 H Albumin 4.2 Lipase 146 TSH Urine Color Gove A Urine Appearance Clear Urine pH 5.5 Ur Specific [place] 1.025 Urine Protein 2+ A Urine Glucose (UA) Negative Urine Ketones 1+ A Urine Blood Negative Urine Nitrite Negative Urine Bilirubin 1+ A Urine Urobilinogen 1.0 Ur Leukocyte Esterase Negative Urine RBC 0-2 Urine WBC 0-2 Ur Squamous Epith Cells Many A Urine Bacteria None Urine Mucus Many A Ethyl Alcohol < 0.01 L SARS-CoV-2 (PCR) Negative SARS-CoV-2 Influenza Type A (PCR) Negative PCR FLU A Influenza Type B (PCR) Negative PCR FLU B RSV (PCR) Negative PCR RSV 07/11/23 05:45 WBC 13.45 H RBC 3.16 L Hgb 9.5 L Hct 29.0 L MCV 92 MCH 30 MCHC 33 RDW Coeff of Marcell 14.2 Plt Count 247 Neut % (Auto) 74.3 H Lymph % (Auto) 19.4 L [place] % (Auto) 5.3 Eos % (Auto) 0.4 Baso % (Auto) 0.2 Neut # (Auto) 10.00 H Lymph # (Auto) 2.60 [place] # (Auto) 0.70 Eos # (Auto) 0.10 Baso # (Auto) 0.00 Abs Immat Gran (auto) 0.10 Imm/Tot Granulo (auto) 0.4 Sodium 140 Potassium 3.8 Chloride 109 Carbon Dioxide 25 Anion Gap 6 L BUN 32 H Creatinine 0.9 Estimated Creat Clear 52.28 Estimated GFR 86 Glucose 156 H Lactate 0.8 Calcium 8.3 L Total Bilirubin 1.1 Direct Bilirubin 0.7 H AST 222 H ALT 152 H Alkaline Phosphatase 121 Total Creatine Kinase 77 Troponin I 0.11 H* C-Reactive Protein 25.4 H Total Protein 5.9 L Albumin 2.9 L Lipase TSH 1.450 Urine Color Urine Appearance Urine pH Ur Specific [place] Urine Protein Urine Glucose (UA) Urine Ketones Urine Blood Urine Nitrite Urine Bilirubin Urine Urobilinogen Ur Leukocyte Esterase Urine RBC Urine WBC Ur Squamous Epith Cells Urine Bacteria Urine Mucus Ethyl Alcohol SARS-CoV-2 (PCR) Influenza Type A (PCR) Influenza Type B (PCR) RSV (PCR) Study: CT Head W/O-07/11/2023 2:07:38 PM Ordering Physician: KENIA Final Report: Indication: Altered mental status, fever. Technique: Noncontrast CT of the head with multiplanar reconstruction utilizing bone and soft tissue algorithms. Comparison: None available. Findings: No acute intracranial hemorrhage. Scattered supratentorial white matter hypoattenuation typical of chronic small vessel ischemic changes. Mild diffuse parenchymal volume loss. No ventricular obstruction. Prominent left retro cerebellar CSF attenuating collection potentially representing an arachnoid cyst. Intact calvarium. Evidence of prior cataract surgery. The imaged paranasal sinuses and mastoid air cells are clear. Impression: 1. No acute intracranial abnormality. 2. Mild diffuse parenchymal volume loss and chronic small vessel ischemic changes. 3. Prominent left retrocerebellar CSF attenuating collection, not adequately characterized on CT but potentially representing an arachnoid cyst. Please note that all CT scans at this facility use dose modulation, iterative reconstruction, and/or weight-based dosing when appropriate to reduce radiation dose to as low as reasonably achievable. Dictated by Kenroy Atwood MD @ 07/11/2023 2:40:18 PM (Electronic Signature) Study:?CT Chest/Abd/Pelvis with PE protocol 95cc -4/16/2024 9:28:18 PM Ordering Physician:Loi, Deon Final Report: Indication: Fever of unknown origin Technique: CTA of the chest and postcontrast CT of the abdomen and pelvis with multiplanar reformats following 95 mL Isovue 370 IV. Comparison: None Findings: Chest: Pulmonary arteries: Significant motion degradation. No large or central pulmonary embolism is appreciated. Lungs: No consolidation. No effusion. No pneumothorax. Apical predominant moderate centrilobular and paraseptal emphysema. Basilar predominant fibrotic changes. Mediastinum: No acute abnormality appreciated. Calcified atherosclerosis. Lymph nodes: No gross lymphadenopathy. Soft tissues: No acute abnormality appreciated. Bones: No acute abnormality appreciated. Abdomen and Pelvis: Hepatobiliary: No significant parenchymal abnormality is appreciated. Spleen: Unremarkable. Pancreas: No acute abnormality appreciated. Adrenal glands: No acute abnormality appreciated. Kidneys: No significant parenchymal abnormality appreciated. No visualized calculi. No hydronephrosis. Bowel: Diverticulosis without evidence of acute diverticulitis. No obstruction. No focal perienteric or pericolonic stranding is appreciated. The appendix is visualized and appears unremarkable. Vascular: No acute abnormality appreciated. Calcified atherosclerosis. Lymph nodes: No gross lymphadenopathy. Peritoneum: No free air. No free fluid. : No acute abnormality appreciated. Soft tissues: There is a large edematous fatty lesion, possibly an incarcerated hernia, noted along the left ventral pelvis anterior to the pubic symphysis measuring 8.3 x 4.1 centimeters. Bones: No acute fracture. No lytic or blastic lesion. Degenerative changes of the spine and pelvis. Impression: 1. Significant respiratory motion degradation through the chest. No large or central PE is present. 2. There is a large edematous fatty lesion along the ventral pelvis anterior to the pubic symphysis measuring up to 8.3 centimeters, possibly an incarcerated hernia common no prior examination available for comparison. 3. Additional chronic findings as above with no other acute abnormality appreciated. Please note that all CT scans at this facility use dose modulation, iterative reconstruction, and/or weight-based dosing when appropriate to reduce radiation dose to as low as reasonably achievable. Dictated by Theodore Henriquez MD @ 07/10/2023 9:44:51 PM (Electronic Signature) Study: XRay Chest PA and lateral-07/10/2023 9:29:17 PM Ordering Physician: Deon Torres Final Report: Indication: Fever of unknown origin Technique: Two views of the chest Comparison: None Findings/Impression: No acute cardiopulmonary process detected. Dictated by Theodore Henriquez MD @ 07/10/2023 9:45:44 PM (Electronic Signature) Study: US Abdomen GALLBLADDER-07/11/2023 12:27:42 AM Ordering Physician: RYAN AQUINO Final Report: Indication: Fever, weight loss, abnormal LFTs Technique: Limited abdominal ultrasound. Evaluation of the gallbladder and common bile duct. Grayscale and color Doppler imaging utilized. Comparison: None Findings: Gallbladder: No stones or sludge. No wall thickening or adjacent fluid. Common bile duct: 5 mm. Impression: No acute sonographic abnormality of the gallbladder or common bile duct. Dictated by Theodore Henriquez MD @ 07/11/2023 12:36:03 AM (Electronic Signature)
[2023-07-11] MEDS: LACTATED RINGERS 500 ML 500 ML IV (16:41)
--- NOTE | 2023-07-11 16:43 | PC.NURSE ---
Soft BPs- 80-100s/50-60s. Otherwise VSS. Pain in left knee this AM- relieved w/ PRN tylenol. Otherwise denies pain. Pt oriented, but withdrawn and needs a lot of direction. Had CT of head- result pending. Decreased appetite. Encouraged fluids. Up to bathroom multiple times, but unable to void- bladder scanned for 200 cc. 500 cc bolus of LR given. BM x2. Left FA IV infiltrated. New IV placed- D5LR infusing @ 125 cc/hr. Up SBA and walker/gait belt. Son here this afternoon. Will continue to monitor, follow POC, and keep pt and family updated. Isabell Edwards RN
[2023-07-12] VITALS (8 sets, daily range): BP systolic 101–126; BP diastolic 59–79; PULSE 82–96; RESP 20–30; TEMP 36.4–38.2; O2SAT 88–94; BMI 24.9
[2023-07-12] MEDS: ERTAPENEM 1 GM in 0.9 % SODIUM CHLORIDE Mini-bag 100 ML IVPB ×2 (00:10→22:37)
[2023-07-12] MEDS: 5 % DEXTROSE IN LAC RINGER'S 1,000 ML 125 ML IV ×3 (00:15→16:54)
[2023-07-12 03:49] LABS: HIV 1/2/P24 Combo Screen* Negative (Negative)
--- NOTE | 2023-07-12 04:34 | PC.NURSE ---
Shift note: Pt had a fever of 100 at the start of the shift with intermittent productive cough. Pt had difficulty urinating. Post voiding scan was 333ml. Straight catheter inserted at 0230 and drained 450ml of clear urine with dark alexsander color. Sleeping pattern interrupted with the frequency of micturition. A1, with walker and GB.
[2023-07-12 06:30] LABS: Basophils Absolute Auto 0.03 K/uL (0.00-0.30); Basophils Percent Auto 0.3 % (0.0-3.0); Eosinophils Absolute Auto 0.27 K/uL (0.00-0.50); Eosinophils Percent Auto 2.8 % (0.0-7.0); Hematocrit 29.5 % (37.0-53.0); Hemoglobin* 9.6 gm/dL (13.5-17.5); Immature Granulocytes Abs Auto 0.04 K/uL (0.00-0.30); Immature Granulocytes Pct Auto 0.4 %; Lymphocytes Absolute Auto 2.07 K/uL (0.90-2.90); Lymphocytes Percent Auto 21.3 % (20-44); Mean Corpuscular HGB Conc 33 gm/dL (32-36); Mean Corpuscular Hemoglobin 30 pg (26-34); Mean Corpuscular Volume 92 fL (80-100); Monocytes Percent Auto 5.5 % (0.0-11.0); Neutrophils Absolute Auto 6.77 K/uL (1.7-7.0); Neutrophils Percent Auto 69.7 % (42.0-72.0); Platelet Count* 224 K/uL (140-440); RDW Coefficient of Variation % 14.3 % (11.5-15.5); Red Blood Count 3.22 m/uL (4.30-5.90); White Blood Count* 9.71 K/uL (4.50-11.00)
[2023-07-12 06:31] LABS: Slide Review Reflex No
[2023-07-12 06:53] LABS: Albumin* 2.6 g/dL (3.3-5.0); Chloride* 110 mmol/L (96-114); Potassium* 3.4 mmol/L (3.6-5.1); Sodium* 140 mmol/L (135-149)
[2023-07-12 06:56] LABS: Creatinine* 0.8 mg/dL (0.5-1.5); Est. Creatinine Clearance* 52.28; Estimated Glomerular Filt Rate 89 ml/min
[2023-07-12 06:57] LABS: Alanine Aminotransferase* 87 U/L (4-50); Alkaline Phosphatase* 114 U/L (40-150); Anion Gap 1 mEq/L (7-15); Aspartate Amino Transferase* 91 U/L (12-35); Bilirubin Direct* 0.4 mg/dL (0.0-0.5); Bilirubin Total* 0.6 mg/dL (0.1-1.5); Blood Urea Nitrogen* 19 mg/dL (7-30); Calcium* 8.4 mg/dL (8.4-10.6); Carbon Dioxide* 29 mmol/L (20-32); Glucose* 124 mg/dL (60-115); Total Protein* 5.6 g/dL (6.0-8.3)
[2023-07-12 07:11] LABS: C Reactive Protein* 16.9 mg/dL (0.5-1.0)
[2023-07-12] MEDS: OMEPRAZOLE 20 MG CAPSULE DR PO (09:03)
[2023-07-12] MEDS: atenoloL 50 MG TABLET 25 MG PO (09:04)
--- NOTE | 2023-07-12 10:42 | PM.IMPN1 ---
Progress Note: A&P Assessment and plan (1) Fever: Problem details: No obvious source for the fever. Initial most likely concerns were hepatobiliary with elevated LFTs or pneumonia with cough and SOB. Abd CT and US without any evidence of hepatobiliary sources, hepatitis panel pending and LFTs significantly improved. No pneumonia on initial CT or CXR, but patient was likely dehydrated on admission. Due to elevated lactate, CRP, white blood count, fever, blood cultures were obtained and started empiric antibiotics. Leukocytosis has resolved and fever curve improved. Temps have remained below 100.4 since the ER. Blood and urine cultures are without growth to date. No signs of meningitis. -Continue antibiotics for one more day -Repeat CXR now that he is fluid resuscitated. -Consider ID consult -Echo pending Status: Acute (2) Abnormal liver enzymes: Problem details: Ultrasound unremarkable. LFTs improving, acute hepatitis labs pending Status: Acute (3) Elevated troponin: Problem details: No chest pain, no concerning EKG features -Echo pending Status: Acute (4) Weight loss: Problem details: 5 kg weight loss in 3 weeks Status: Acute (5) Soft tissue mass: Problem details: Pre pubic. Possibly chronic Status: Acute (6) Weakness: Problem details: Unable to stand and walk independently. Likely related to recent illness. -Therapies to assess Status: Acute (7) Dysphagia: Problem details: Recent history of pain in his throat with swallowing. Status: Acute (8) COPD (chronic obstructive pulmonary disease): Problem details: Due to remote history of cigarette smoking. Quit in 1996. 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 Urologist signed off last November 2022 after no recurrence in 2 years. Status: Chronic (10) Hypertension: Problem details: Hold losartan and reduce atenolol due to low blood pressure Status: Chronic (11) Hyperlipidemia: Problem details: Hold simvastatin due to abnormal liver enzymes Status: Chronic (12) BPH (benign prostatic hyperplasia): Status: Chronic Subjective Date Seen: 07/12/23 Interval history: Patient is seen and examined. He says he feels about the same, but does note ongoing cough productive of thick, white sputum. He also has dyspnea, but no chest pain, no BLACK, no vision changes, no abdominal pain or changes in bowel/bladder function, no neck pain. Labs have been improving and there is no growth on cultures thusfar. Exam Narrative: Exam Narrative: General: No distress, sitting up in chair and well appearing HEENT: No nasal congestion, NCAT Neck: No pain with movement, [id number] without low back pain or hip/leg flexion Resp: Sounds mildly winded with increased RR, no wheezing, ronchi or crackles. Poor inspiratory effort CV: RRR, soft systolic murmur Abd: Normal BS, non-distended and nontender with negative Sepulveda's Neuro: No lateralizing deficits Const: Vital Signs, click to edit/add: Vital Signs - 24 hr 07/11/23 11:00 07/11/23 14:52 07/11/23 17:03 Temperature 96.9 F L 97.6 F Pulse Rate [Left P ulse Oximeter] 72 84 Respiratory Rate 16 20 Blood Pressure [Le ft Arm] 88/60 L 105/51 L 110/70 Blood Pressure [Ri ght Arm] Pulse Oximetry 95 90 Oxygen Delivery Me thod Room Air Room Air 07/11/23 19:00 07/11/23 23:00 07/11/23 23:00 Temperature 98.8 F 100 F H Pulse Rate [Left P ulse Oximeter] 88 92 92 Respiratory Rate 20 20 20 Blood Pressure [Le ft Arm] Blood Pressure [Ri ght Arm] 120/64 108/64 Pulse Oximetry 92 90 Oxygen Delivery Me thod Room Air Room Air 07/12/23 02:09 07/12/23 07:40 07/12/23 07:40 Temperature 99.7 F H 97.5 F L Pulse Rate [Left P ulse Oximeter] 92 83 83 Respiratory Rate 20 24 24 Blood Pressure [Le ft Arm] 102/70 101/69 Blood Pressure [Ri ght Arm] Pulse Oximetry 91 88 Oxygen Delivery Me thod Room Air Room Air Labs Labs: Laboratory Results - last 24 hr 07/11/23 07/12/23 05:45 06:13 WBC 9.71 RBC 3.22 L Hgb 9.6 L Hct 29.5 L MCV 92 MCH 30 MCHC 33 RDW Coeff of Marcell 14.3 Plt Count 224 Neut % (Auto) 69.7 Lymph % (Auto) 21.3 [place] % (Auto) 5.5 Eos % (Auto) 2.8 Baso % (Auto) 0.3 Neut # (Auto) 6.77 Lymph # (Auto) 2.07 [place] # (Auto) 0.50 Eos # (Auto) 0.27 Baso # (Auto) 0.03 Abs Immat Gran (auto) 0.04 Imm/Tot Granulo (auto) 0.4 Sodium 140 Potassium 3.4 L Chloride 110 Carbon Dioxide 29 Anion Gap 1 L BUN 19 Creatinine 0.8 Estimated Creat Clear 52.28 Estimated GFR 89 Glucose 124 H Calcium 8.4 Total Bilirubin 0.6 Direct Bilirubin 0.4 AST 91 H ALT 87 H Alkaline Phosphatase 114 C-Reactive Protein 16.9 H Total Protein 5.6 L Albumin 2.6 L HIV 1&2 Ab/P24 Ag 4thGn Negative
--- NOTE | 2023-07-12 11:30 | XR_ITS ---
Patient: BRIAN MARTELL Facility:?[facility] Patient ID:?[id number] Site Patient ID:?[id number]. Site :?[id number] Study:?XRay-Chest 2 view-07/12/2023 11:26:58 AM Ordering Physician:Yisel Gar Final Report: INDICATION: Shortness of breath. TECHNIQUE: Chest 2 view(s) COMPARISON: Chest radiograph dated 07/10/2023. FINDINGS: Stable cardiomediastinal silhouette and pulmonary vasculature. Slightly increased conspicuity of patchy retrocardiac airspace opacities in the lingula. No layering pleural effusion. No pneumothorax. Extensive multilevel degenerative changes of the visualized spine. IMPRESSION: Slightly increased conspicuity of patchy retrocardiac airspace opacities in the lingula, may reflect atelectasis or early developing pneumonia. Dictated by Cynthia Pradhan MD @ 07/12/2023 12:24:52 PM Signed by:?Cynthia Pradhan MD @07/12/2023 12:24:52 PM (Electronic Signature)
--- NOTE | 2023-07-12 16:22 | PC.SOCIAL ---
Discharge planning- Met with pt's daughter Zakiya to discuss discharge plans. Per MD, pt will require 24/ care. Pt's daughter shares that she works Wednesday through Wednesday from 7:30 am to 3:30 pm. Pt's daughter works 5 minutes from the home. Pt's daughter resides in the home with pt and is pt's primary caregiver. Pt's daughter will discuss with her brother this evening to come up with a plan to have someone at the home when she is working. Pt's daughter informs that pt has several neighbors, friends, and family that can assist pt as needed when pt's daughter is working. Pt's daughter shares that pt pays his own bills and states that she checked into the bills and everything is paid up to date. Pt's daughter does not believe pt has cognitive issues and states that pt just doesn't listen. Informed pt's daughter that she can discuss in more detail with the hospitalist on staff surrounding pt's cognition. This worker will follow up with pt's daughter tomorrow to see if the family developed a plan for supervision for the pt.
--- NOTE | 2023-07-12 18:20 | PC.NURSE ---
End of Shift: Patient pleasant and cooperative, alert and oriented x3. Patient vitally stable, lungs course with expiratory wheezes on and off, BS WNL, IV running D5LR at 125. Patient on RA sating 88% to low 90s. Patient has had respirations as high as 30. Patient 1 assist/walker, and denies pain. Patient does have a moist cough, not productive, even though patient used Kleenex to constantly clean mouth. Patient does not have much of an appetite but is eating little, and urinating.
[2023-07-12] MEDS: ACETAMINOPHEN 325 MG TABLET 650 MG PO (21:05)
[2023-07-13] VITALS (8 sets, daily range): BP systolic 115–163; BP diastolic 67–86; PULSE 77–94; RESP 16–30; TEMP 36.3–37.3; O2SAT 88–93; BMI 25.6
[2023-07-13] MEDS: 5 % DEXTROSE IN LAC RINGER'S 1,000 ML 125 ML IV ×3 (02:52→19:28)
[2023-07-13 06:35] LABS: Basophils Absolute Auto 0.03 K/uL (0.00-0.30); Basophils Percent Auto 0.3 % (0.0-3.0); Eosinophils Absolute Auto 0.51 K/uL (0.00-0.50); Eosinophils Percent Auto 4.8 % (0.0-7.0); Hematocrit 32.7 % (37.0-53.0); Hemoglobin* 10.6 gm/dL (13.5-17.5); Immature Granulocytes Abs Auto 0.02 K/uL (0.00-0.30); Immature Granulocytes Pct Auto 0.2 %; Lymphocytes Absolute Auto 2.98 K/uL (0.90-2.90); Lymphocytes Percent Auto 28.2 % (20-44); Mean Corpuscular HGB Conc 32 gm/dL (32-36); Mean Corpuscular Hemoglobin 30 pg (26-34); Mean Corpuscular Volume 92 fL (80-100); Monocytes Percent Auto 4.9 % (0.0-11.0); Neutrophils Absolute Auto 6.51 K/uL (1.7-7.0); Neutrophils Percent Auto 61.6 % (42.0-72.0); Platelet Count* 277 K/uL (140-440); RDW Coefficient of Variation % 14.3 % (11.5-15.5); Red Blood Count 3.57 m/uL (4.30-5.90); White Blood Count* 10.57 K/uL (4.50-11.00)
[2023-07-13 06:38] LABS: Slide Review Reflex No
[2023-07-13 06:48] LABS: Albumin* 2.9 g/dL (3.3-5.0)
[2023-07-13 06:51] LABS: Alanine Aminotransferase* 78 U/L (4-50); Alkaline Phosphatase* 123 U/L (40-150); Aspartate Amino Transferase* 61 U/L (12-35); Bilirubin Direct* 0.4 mg/dL (0.0-0.5); Bilirubin Total* 0.7 mg/dL (0.1-1.5)
[2023-07-13 07:26] LABS: C Reactive Protein* 14.3 mg/dL (0.5-1.0)
--- NOTE | 2023-07-13 07:58 | PC.NURSE ---
[id number]: Patient cooperative with cares. A&Ox3 with some confusion and repetitive statements. SBA w/4ww. Fever of 100.7 around 2200. Tylenol administered. MD updated and no new orders. Productive cough. Intermittent SOB at rest and with activity. 05.-1.0 Lt NC to maintain sats @88%. Rash noted on back, MD updated. Denies pain. Encouraged PO intake.
[2023-07-13] MEDS: OMEPRAZOLE 20 MG CAPSULE DR PO (09:07)
[2023-07-13] MEDS: atenoloL 50 MG TABLET 25 MG PO (09:07)
[2023-07-13] MEDS: PERFLUTREN LIPID MICROSPHERES 2 ML VIAL IV (11:37)
--- NOTE | 2023-07-13 15:06 | PC.SOCIAL ---
Discharge planning- Per MD, pt will need home care for Nursing, PT, and OT upon discharge. Pt is not medically cleared for discharge. Completed face to face for home care orders for Nursing, PT, and OT. Secure e-mailed referral packet and home care face to face to Sloane Bertrand with [facility] at [email or web address]. Sloane informs that Home care can accept referral. Sloane requests that social work provide her with an update when pt will discharge and also secure e-mail discharge orders to her. Provided update to charge nurse. Phone call to pt's son Ean and pt's daughter Zakiya. Provided pt's family with an update on home care. Discussed family plan for supervision for pt. Pt's daughter Zakiya lives with pt and will be there full-time Wednesday through Wednesday. Pt's daughter works Wednesday-Wednesday from 7:30 am to 3:30 pm. Family is actively discussing who can assist with supervision during pt's daughter's work times. Pt's son informs that they will have a plan upon discharge. Provided family with social work phone number if there is any further questions. Social work will follow up as needed.
--- NOTE | 2023-07-13 15:19 | P.IMPN_ITS ---
Progress Note: A&P Assessment and plan (1) Fever: Problem details: No obvious source for the fever. Initial most likely concerns were hepatobiliary with elevated LFTs or pneumonia with cough and SOB. Abd CT and US without any evidence of hepatobiliary sources, hepatitis panel pending and LFTs s ignificantly improved. No pneumonia on initial CT or CXR, but patient was likely dehydrated on admission. Due to elevated lactate, CRP, white blood count, fever, blood cultures were obtained and started empiric antibiotics. Leukocytosis has resolved and fever curve improved. Temp spiked overnight again to 100.7, repeat blood cultures drawn. TTE without valvular vegetation. Blood and urine cultures are without growth to date. Discussed with infectious disease, Dr. Contreras, who recommended focusing treatment on possible respiratory source. If he spikes a fever overnight 07/12-07/13, will reach out again for formal consult. -Adjust antibiotics to azithro and Rocephin and monitor overnight Status: Acute (2) Abnormal liver enzymes: Problem details: Ultrasound unremarkable. LFTs improving, acute hepatitis labs pending Status: Acute (3) Elevated troponin: Problem details: No chest pain, no concerning EKG features. Echo with mildly reduced global systolic function at 46%. -Patient will be referred to cardiology as outpatient for further recommendations Status: Acute (4) Chronic HFrEF (heart failure with reduced ejection fraction): Status: Acute (5) Weight loss: Problem details: 5 kg weight loss in 3 weeks Status: Acute (6) Severe protein-calorie malnutrition: Problem details: Patient assessed by entry level marketing representative. -Continue supplements started this admission Status: Acute (7) Soft tissue mass: Problem details: Pre pubic. Possibly chronic Status: Acute (8) Weakness: Problem details: Unable to stand and walk independently on admission. Likely related to recent i llness. -Therapies to assess Status: Acute (9) Dysphagia: Problem details: Recent history of pain in his throat with swallowing. Status: Acute (10) COPD (chronic obstructive pulmonary disease): Problem details: Due to remote history of cigarette smoking. Quit in 1996. 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 Urologist signed off last November 2022 after no recurrence in 2 years. Status: Chronic (12) Hypertension: Problem details: Hold losartan and reduce atenolol due to low blood pressure Status: Chronic (13) Hyperlipidemia: Problem details: Hold simvastatin due to abnormal liver enzymes Status: Chronic (14) BPH (benign prostatic hyperplasia): Problem details: Acute urinary retention here requiring Lehman placement -Start tamsulosin -Voiding trial prior to discharge Status: Chronic Subjective Date Seen: 07/13/23 Interval history: Patient is seen and examined. He says he feels about the same, but now denies dyspnea. No new concerns but he did have a fever to 100.7 overnight. Labs have been improving and there is no growth on cultures thusfar. Exam Narrative: Exam Narrative: General: Well appearing HEENT: NCAT, no nasal congestion Resp: Breathing is comfortable and unlabored Neuro: No lateralizing deficits Skin: Warm and dry, no lesions or rashes noted Const: Vital Signs, click to edit/add: Vital Signs - 24 hr 07/12/23 15:39 07/12/23 15:39 07/12/23 20:39 Temperature 97.6 F 100.7 F H Pulse Rate [Left P ulse Oximeter] 85 85 86 Respiratory Rate 30 H 30 H 24 Blood Pressure [Le ft Arm] 126/73 126/79 Pulse Oximetry 90 90 Oxygen Delivery Me thod Room Air Room Air Oxygen Flow Rate 07/12/23 21:05 07/12/23 22:36 07/12/23 22:37 Temperature 100.7 F H 99.4 F 99.4 F Pulse Rate [Left P ulse Oximeter] 96 Respiratory Rate 24 Blood Pressure [Le ft Arm] 110/59 L Pulse Oximetry 90 Oxygen Delivery Me thod Room Air Oxygen Flow Rate 07/13/23 02:55 07/13/23 07:56 07/13/23 07:56 Temperature 97.4 F L 97.9 F Pulse Rate [Left P ulse Oximeter] 77 89 89 Respiratory Rate 22 28 H 28 H Blood Pressure [Le ft Arm] 134/77 163/86 H Pulse Oximetry 93 92 Oxygen Delivery Me thod Nasal Cannula Room Air Oxygen Flow Rate 1.0 07/13/23 07:56 07/13/23 11:25 Temperature 98.4 F Pulse Rate [Left P ulse Oximeter] 83 Respiratory Rate 28 H 16 Blood Pressure [Le ft Arm] 122/70 Pulse Oximetry 92 88 Oxygen Delivery Me thod Room Air Room Air Oxygen Flow Rate Labs Labs: Laboratory Results - last 24 hr 07/13/23 05:55 WBC 10.57 RBC 3.57 L Hgb 10.6 L Hct 32.7 L MCV 92 MCH 30 MCHC 32 RDW Coeff of Marcell 14.3 Plt Count 277 Neut % (Auto) 61.6 Lymph % (Auto) 28.2 [place] % (Auto) 4.9 Eos % (Auto) 4.8 Baso % (Auto) 0.3 Neut # (Auto) 6.51 Lymph # (Auto) 2.98 H [place] # (Auto) 0.50 Eos # (Auto) 0.51 H Baso # (Auto) 0.03 Abs Immat Gran (auto) 0.02 Imm/Tot Granulo (auto) 0.2 Total Bilirubin 0.7 Direct Bilirubin 0.4 AST 61 H ALT 78 H Alkaline Phosphatase 123 C-Reactive Protein 14.3 H Total Protein 6.0 Albumin 2.9 L
[2023-07-13] MEDS: 0.9 % SODIUM CHLORIDE 250 ml IV (16:13)
[2023-07-13] MEDS: cefTRIAXone 1 GM in 0.9 % SODIUM CHLORIDE Mini-bag 100 ML IVPB (16:13)
[2023-07-13] MEDS: AZITHROMYCIN 250 MG TABLET 500 MG PO (16:13)
--- NOTE | 2023-07-13 18:24 | PC.NURSE ---
End of Shift: Patient pleasant and cooperative. Patient vitally stable, lungs course/diminished, BS WNL, IV running D5LR at 125. Patient on RA this shift sating 88 to low 90s. Patient 1 assist/walker. Patient with a small appetite, only ordering breakfast and dinner eating about 50% of the meals. Bladder scan performed 550 cc scanned, hinton inserted and upon insertion 800 was emptied. Hinton intact and draining, at times there is some pink urine otherwise clear and light alexsander. No BM this shift. Patient has been up in chair for a good amount of time this shift.
[2023-07-13 18:31] LABS: Hep A Ab, IgM Negative (Negative); Hep B Core Ab, IgM Negative (Negative); Hep B Surface Antigen Negative (Negative); Hep C Ab by CIA Index 0.09 IV; Hep C Ab by CIA Interp Negative (Negative)
[2023-07-13] MEDS: SODIUM CHLORIDE 0.9 % (FLUSH) 10 ML SYRINGE 5 ML IVF (21:56)
[2023-07-14 03:25] VITALS: BP 134/76; PULSE 89; RESP 24; TEMP 37.3; O2SAT 91
[2023-07-14] MEDS: 5 % DEXTROSE IN LAC RINGER'S 1,000 ML 125 ML IV (04:30)
[2023-07-14] MEDS: ACETAMINOPHEN 325 MG TABLET 650 MG PO (06:28)
--- NOTE | 2023-07-14 06:43 | PC.NURSE ---
End of shift note [id number]: Pt noted to be alert & oriented to self and time though disoriented to place as he believed he was in [place] when asked. Staff have been assisting pt with repositioning/offloading in bed throughout the night as he has blanchable redness to bilateral buttocks. IV to R AC with D5LR running at 125 mL/hr per order. Pt noted to have poor po fluid intake despite encouragement and reapproaching. Lehman catheter remains in place and urine continues to be pink tinged, likely due to trauma of Lehman insertion yesterday. Urine noted to becoming more clear toward end of shift. ?Oxygen 0.5-1 LPM via NC utilized throughout the night due to O2 sat noted to be in the low 80?s on RA and did not stabilize despite encouraging coughing and deep breathing. Intermittent productive cough with white sputum noted. PRN Tylenol given this morning for c/o 5/10 pain to R knee.
[2023-07-14 06:55] LABS: Basophils Percent Auto 0.3 % (0.0-3.0); Eosinophils Percent Auto 3.4 % (0.0-7.0); Hematocrit 30.5 % (37.0-53.0); Hemoglobin* 10.2 gm/dL (13.5-17.5); Immature Granulocytes Pct Auto 0.4 %; Lymphocytes Percent Auto 24.1 % (20-44); Mean Corpuscular HGB Conc 33 gm/dL (32-36); Mean Corpuscular Hemoglobin 30 pg (26-34); Mean Corpuscular Volume 90 fL (80-100); Monocytes Percent Auto 5.8 % (0.0-11.0); Platelet Count* 265 K/uL (140-440); RDW Coefficient of Variation % 14.2 % (11.5-15.5); Red Blood Count 3.38 m/uL (4.30-5.90); White Blood Count* 11.37 K/uL (4.50-11.00)
[2023-07-14 07:00] VITALS: BP 122/79; PULSE 91; RESP 20; TEMP 36.6; O2SAT 93
[2023-07-14 07:00] LABS: Slide Review Reflex No
[2023-07-14] MEDS: TAMSULOSIN HCL 0.4 MG CAPSULE PO (09:56)
[2023-07-14] MEDS: OMEPRAZOLE 20 MG CAPSULE DR PO (09:56)
[2023-07-14] MEDS: atenoloL 50 MG TABLET 25 MG PO (09:57)
[2023-07-14] MEDS: SODIUM CHLORIDE 0.9 % (FLUSH) 10 ML SYRINGE 5 ML IVF ×2 (09:57→21:50)
[2023-07-14 11:00] VITALS: BP 109/80; PULSE 77; RESP 18; TEMP 36.6; O2SAT 96
--- NOTE | 2023-07-14 12:09 | P.IMPN_ITS ---
Progress Note: A&P Assessment and plan (1) Fever: Problem details: No obvious source for the fever. Initial most likely concerns were hepatobiliary with elevated LFTs or pneumonia with cough and SOB. Abd CT and US without any evidence of hepatobiliary sources, hepatitis panel pending and LFTs s ignificantly improved. No pneumonia on initial CT or CXR, but patient was likely dehydrated on admission. Due to elevated lactate, CRP, white blood count, fever, blood cultures were obtained and started empiric antibiotics. Leukocytosis has resolved and fever curve improved. Temp spiked again to 100.7, repeat blood cultures drawn. TTE without valvular vegetation. Blood and urine cultures are without growth to date. Discussed with infectious disease, Dr. Contreras, who recommended focusing treatment on possible respiratory source. If he spikes a fever overnight 07/12-07/13, plan was to reach out again for formal consult. Patient remains afebrile, so continuing present management. -Continue antibiotics, azithro and Rocephin. Transition to oral regimen on discharge Status: Acute (2) Cognitive impairment: Problem details: Patient lives in an independent home with his daughter and is independent with all ADL at baseline. Unfortunately, patient now showing signs of significant cognitive impairment. MoCA 14/30, Safety and problem solving questionnaire 12.5/ and poor performance on [place] making test part B. OT has been following. Suspect patient likely has chronic cognitive impairment which has become acutely unmasked due to his current illness. Recommendation at this point is for 24/7 supervision. Family was arranging for this at home with home health to assist, but now question if he needs a higher level of care for a short time. -Family considering [facility] (appreciate health and social care teacher assistance) -Patient likely medically stable to discharge once safe plan is established (also awaiting voiding trial) Status: Acute (3) Abnormal liver enzymes: Problem details: Ultrasound unremarkable. LFTs improving, acute hepatitis panel negative. Status: Acute (4) Elevated troponin: Problem details: No chest pain, no concerning EKG features. Echo with mildly reduced global systolic function at 46%. -Patient should be referred to cardiology as outpatient for further recommendations upon discharge Status: Acute (5) BPH (benign prostatic hyperplasia): Problem details: Acute urinary retention here requiring Hinton placement -Started tamsulosin here. -Currently undergoing voiding trial Status: Chronic (6) Chronic HFrEF (heart failure with reduced ejection fraction): Problem details: No evidence of decompensation Status: Acute (7) Weight loss: Problem details: 5 kg weight loss in 3 weeks Status: Acute (8) Severe protein-calorie malnutrition: Problem details: Patient assessed by novelty worker. -Continue supplements started this admission Status: Acute (9) Soft tissue mass: Problem details: Pre pubic. Possibly chronic Status: Acute (10) Weakness: Problem details: Unable to stand and walk independently on admission. Likely related to recent illness. -Therapies are ongoing, but patient's mobility has significantly improved. Status: Acute (11) Dysphagia: Problem details: Recent history of pain in his throat with swallowing. Status: Acute (12) COPD (chronic obstructive pulmonary disease): Problem details: Due to remote history of cigarette smoking. Quit in 1996. 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 Urologist signed off last November 2022 after no recurrence in 2 years. Status: Chronic (14) Hypertension: Problem details: Hold losartan and reduce atenolol due to low blood pressure Status: Chronic (15) Hyperlipidemia: Problem details: Hold simvastatin due to abnormal liver enzymes Status: Chronic Plan Patient will be stable for discharge once he completes voiding trial. If unable to void completely, may require hinton replacement and referral to urology. Family is reviewing options for discharge, likely will go home with home health and family to provide 16/11 supervision or enhanced assisted living program. Subjective Date Seen: 07/14/23 Interval history: Patient is seen and examined. He says he feels about the same (says this daily). No new concerns and remained afebrile overnight. Labs are essentially stable and there is no growth on cultures thusfar. Son called and was concerned after visiting patient last evening. He says patient is typically independent and son is concerned about the significant cognitive decline. He is not sure bringing him home is the best idea at this point. EXAM General- well appearing, no distress HEENT- NCAT, no nasal congestion Resp- CTAB. no wheezes or ronchi CV- RRR, no m/g/r Neuro- Awake, alert, forgetful and repetitive. Does not offer much communication. No lateralizing deficits noted. - Hinton draining rust colored urine, no clots noted. Exam Const: Vital Signs, click to edit/add: Vital Signs - 24 hr 07/13/23 15:25 07/13/23 15:25 07/13/23 15:25 Temperature 98.2 F Pulse Rate [Left P ulse Oximeter] Respiratory Rate 30 H 30 H 30 H Blood Pressure [Le ft Arm] Blood Pressure [Ri ght Arm] 136/83 Pulse Oximetry 89 89 Oxygen Delivery Me thod Room Air Room Air Oxygen Flow Rate 07/13/23 19:35 07/13/23 23:00 07/13/23 23:38 Temperature 98.4 F 99.1 F Pulse Rate [Left P ulse Oximeter] 94 85 85 Respiratory Rate 22 20 20 Blood Pressure [Le ft Arm] 115/67 132/77 Blood Pressure [Ri ght Arm] Pulse Oximetry 90 88 Oxygen Delivery Me thod Room Air Room Air Oxygen Flow Rate 1.0 07/13/23 23:48 07/14/23 03:25 07/14/23 07:00 Temperature 99.1 F 97.9 F Pulse Rate [Left P ulse Oximeter] 89 91 Respiratory Rate 20 24 20 Blood Pressure [Le ft Arm] 134/76 Blood Pressure [Ri ght Arm] 122/79 Pulse Oximetry 88 91 93 Oxygen Delivery Me thod Nasal Cannula Nasal Cannula Room Air Oxygen Flow Rate 1 1 07/14/23 07:00 07/14/23 07:00 07/14/23 11:00 Temperature 97.8 F Pulse Rate [Left P ulse Oximeter] 91 77 Respiratory Rate 20 18 Blood Pressure [Le ft Arm] Blood Pressure [Ri ght Arm] 109/80 Pulse Oximetry 93 96 Oxygen Delivery Me thod Room Air Room Air Oxygen Flow Rate Labs Labs: Laboratory Results - last 24 hr 07/11/23 07/14/23 05:45 06:20 WBC 11.37 H RBC 3.38 L Hgb 10.2 L Hct 30.5 L MCV 90 MCH 30 MCHC 33 RDW Coeff of Marcell 14.2 Plt Count 265 Neut % (Auto) 66.0 Lymph % (Auto) 24.1 [place] % (Auto) 5.8 Eos % (Auto) 3.4 Baso % (Auto) 0.3 Neut # (Auto) 7.50 H Lymph # (Auto) 2.70 [place] # (Auto) 0.70 Eos # (Auto) 0.40 Baso # (Auto) 0.00 Abs Immat Gran (auto) 0.00 Imm/Tot Granulo (auto) 0.4 Hepatitis A IgM Ab Negative Hep Bs Antigen Negative Hep B Core IgM Ab Negative Hep C Ab Index (ANI) 0.09 Hep C Ab Interp ANI Negative Hepatitis Interpret See Note
[2023-07-14] MEDS: AZITHROMYCIN 250 MG TABLET PO (12:24)
--- NOTE | 2023-07-14 13:58 | PC.SOCIAL ---
Addendum entered by JON Lion 07/14/23 16:09: Makenna, from the [facility] has evaluated pt and would be able to admit him tomorrow if that is what family chooses this option. Called sonJaden, who confirmed he has spoken with Makenna and has all the information he needs from social work and from the enhanced assisted living. Jaden states he is meeting with the patient and family members tonight and will have a plan of either home or enhanced assisted living placement for discharge tomorrow. highway maintenance worker to follow up as needed. Original Note: Discharge planning: Called Jaden pearl, regarding d/c plan. Christopher is concerned about the increased supervision being recommended for pt as pt was independent prior to hospitalization. Christopher is requesting short term placement at discharge where pt would have supervision prior to returning home. Discussed with christopher that pt does not currently need the PT/OT or prison care of a short term rehab stay at a prison and that he would be appropriate for an assisted living or memory care assisted living facility. Christopher is requesting evaluation by the [facility] to see if this is an option for pt at discharge. E-mailed son written information on the [facility] program and Secure e-mailed him the Important Message from Medicare and information on the discharge appeal process. Secure e-mailed information to Makenna at the [facility] and requested evaluation for admit tomorrow. Home care has already been arranged with [facility] as it was anticipated pt would be discharging to home. If pt discharges to home, discharge information will be sent to home care. If pt discharges to assisted living, home care will be cancelled.highway maintenance worker to follow up as needed.
[2023-07-14 15:00] VITALS: BP 114/89; PULSE 68; RESP 18; TEMP 36.6; O2SAT 96
[2023-07-14] MEDS: cefTRIAXone 1 GM in 0.9 % SODIUM CHLORIDE Mini-bag 100 ML IVPB (16:10)
[2023-07-14 19:00] VITALS: BP 114/74; PULSE 90; RESP 18; TEMP 36.8; O2SAT 89
[2023-07-14 23:00] VITALS: BP 130/73; PULSE 91; RESP 18; TEMP 37.3; O2SAT 88
[2023-07-15 02:15] VITALS: BP 124/69; PULSE 95; RESP 18; TEMP 36.3; O2SAT 90
[2023-07-15 06:43] LABS: Basophils Absolute Auto 0.02 K/uL (0.00-0.30); Basophils Percent Auto 0.2 % (0.0-3.0); Eosinophils Absolute Auto 0.39 K/uL (0.00-0.50); Eosinophils Percent Auto 3.7 % (0.0-7.0); Hematocrit 30.3 % (37.0-53.0); Immature Granulocytes Abs Auto 0.04 K/uL (0.00-0.30); Immature Granulocytes Pct Auto 0.4 %; Lymphocytes Absolute Auto 2.64 K/uL (0.90-2.90); Lymphocytes Percent Auto 25.2 % (20-44); Mean Corpuscular HGB Conc 33 gm/dL (32-36); Mean Corpuscular Hemoglobin 30 pg (26-34); Mean Corpuscular Volume 90 fL (80-100); Monocytes Percent Auto 6.2 % (0.0-11.0); Neutrophils Absolute Auto 6.73 K/uL (1.7-7.0); Neutrophils Percent Auto 64.3 % (42.0-72.0); Platelet Count* 306 K/uL (140-440); RDW Coefficient of Variation % 14.1 % (11.5-15.5); Red Blood Count 3.36 m/uL (4.30-5.90); White Blood Count* 10.47 K/uL (4.50-11.00)
[2023-07-15 07:00] VITALS: BP 116/63; PULSE 90; RESP 20; TEMP 36.6; O2SAT 91
--- NOTE | 2023-07-15 07:01 | PC.NURSE ---
Shift note: Pt continue to ambulate with A1, walker and GB. O2 level desaturated to 84 midnight. 1L oxygen given to maintain the O2 level. Appears weak. Alert and oriented. No fever recorded.
[2023-07-15 07:02] LABS: Slide Review Reflex No
[2023-07-15 09:16] VITALS: O2SAT 84; O2SAT 90; O2SAT 94
[2023-07-15] MEDS: atenoloL 50 MG TABLET 25 MG PO (11:00)
[2023-07-15] MEDS: TAMSULOSIN HCL 0.4 MG CAPSULE PO (11:01)
[2023-07-15] MEDS: OMEPRAZOLE 20 MG CAPSULE DR PO (11:01)
[2023-07-15] MEDS: SODIUM CHLORIDE 0.9 % (FLUSH) 10 ML SYRINGE 5 ML IVF (11:01)
[2023-07-15] MEDS: AZITHROMYCIN 250 MG TABLET PO (11:21)
--- NOTE | 2023-07-15 12:14 | P.DS_ITS ---
DS: Providers Provider Date Seen: 07/15/23 Date of admission: 07/10/23 23:23 Primary care physician: Mat Lowe MD Admitting Clinician: Karthik Huitron MD Consults: Nutrition, OT, PT Attending Physician on discharge: Autumn Antonio MD Date of Discharge: 07/15/23 DS: Diagnosis Discharge Diagnosis (1) Fever: Status: Acute Problem details: - no obvious source for the fever on admission: initial most likely concerns were hepatobiliary with elevated LFTs or pneumonia with cough and SOB - reassuring abdominal CT/US, hepatitis panel pending and LFTs improved during stay - no PNA on initial CT or CXR, patient was likely dehydrated on admission - elevated lactate, CRP, and WBC on admission, + fever. Empiric abx initiated (Rocephin and Azithromycin, no growth on cultures during stay - TTE reassuring - discussed with ID during stay (Dr. Contreras), who recommended focusing treatment on possible respiratory source - no further fevers during stay - complete course of oral Azithromycin upon discharge, appeared significantly improved 07/14 (2) Cognitive impairment: Status: Acute Problem details: - MoCA , Safety and problem solving questionnaire 12.5/17 and poor perfo rmance on Odon making test part B. OT has been following - suspect patient likely has chronic cognitive impairment which has become acutely unmasked due to his current illness - recommendation at this point is for 16/11 supervision, family aware and comfortable with d/c to [facility] on 07/14 (3) Abnormal liver enzymes: Status: Acute Problem details: - Ultrasound unremarkable. LFTs improving, acute hepatitis panel negative - statin held, will resume upon d/c (4) Elevated troponin: Status: Acute Problem details: - peak at 0.18 without CP or concerning EKG changes, TTE with mildly reduced global systolic function at 46% - patient should be referred to cardiology as outpatient for further recommendations upon discharge (5) BPH (benign prostatic hyperplasia): Status: Chronic Problem details: - Acute urinary retention requiring Lehman placement - Started tamsulosin here. - passed voiding trial prior to d/c (6) Chronic HFrEF (heart failure with reduced ejection fraction): Status: Acute Problem details: - no evidence of decompensation (7) Weight loss: Status: Acute Problem details: 5 kg weight loss in 3 weeks (8) Severe protein-calorie malnutrition: Status: Acute Problem details: - as evidenced by weight loss, anemia, potentially worsened by MCI - patient assessed by poison information specialist. - Continue supplements started this admission (9) Soft tissue mass: Status: Acute Problem details: - Pre pubic. Possibly chronic, f/u with PCP for this (10) Weakness: Status: Acute Problem details: Unable to stand and walk independently on admission. Likely related to recent illness. -Therapies are ongoing, but patient's mobility has significantly improved. (11) COPD (chronic obstructive pulmonary disease): Status: Acute Problem details: - remote history of cigarette smoking. Quit in 1996. 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 Urologist signed off last November 2022 after no recurrence in 2 years. (13) Hypertension: Status: Chronic Problem details: - losartan discontinued and atenolol decreased given hypotension and age - he will be discharged on lower dose of atenolol as monotherapy (14) Hyperlipidemia: Status: Chronic Problem details: - during stay, held simvastatin due to abnormal liver enzymes, restarting upon discharge (15) Anemia: Status: Acute Problem details: - per outpatient chart, baseline Hgb 12-13 - 13.4 on admission, fell to 9/10 on hospital day 1, then remained stable - tolerated po intake, no evidence of acute bleeding - recommend outpatient f/u with PCP to follow DS: Summary Hospital Course Hospital Course: Krishan was admitted to the hospital for fever and dyspnea on 07/09; also noted to have elevated LFTs and anemia. Imaging reassuring, cultures negative, treated empirically with antibiotics and improved. Noted to have urinary retention requiring Lehman placement; Flomax initiated and patient passed voiding trial prior to d/c. Required low dose supplemental oxygen with activity. Given cognitive impairment and weakness, higher level of care recommended upon discharge; family comfortable with d/c to [facility] on 07/15/23. Further details regarding comorbidities and findings during stay are noted above. Will f/u with PCP upon discharge from [facility]. Status at Discharge Functional status at discharge: uses cane/walker Overall status at discharge: patient is progressing back to baseline Time Spent with Patient Time attestation: Total time spent providing and/or coordinating discharge services: Time spent: Greater than 30 minutes Specific discharge activities: Medication reconciliation, patient education, planning with multidisciplinary team Exam Narrative: Exam Narrative: GEN: Alert and pleasant, sitting in bedside chair and watching MASH, eating breakfast HEENT: Normal external ears, EOMIs bilaterally, no scleral icterus CV: RRR, No concerning murmurs, rubs, or gallops R: LCTA bilaterally without concerning wheezing, rales, or rhonchi Ext: wwp, no concerning edema Skin: No concerning skin lesions or rashes on exposed skin Neuro: Nonfocal Psych: Appropriate Const: Vital Signs, click to edit/add: Vital Signs - 24 hr 07/14/23 15:00 07/14/23 15:00 07/14/23 15:00 Temperature 98 F Pulse Rate [Left P ulse Oximeter] 68 68 Respiratory Rate 18 18 18 Blood Pressure [Le ft Arm] 114/89 Blood Pressure [Ri ght Arm] Pulse Oximetry 96 96 Oxygen Delivery Pr thod Room Air Room Air Oxygen Flow Rate 07/14/23 19:00 07/14/23 23:00 07/14/23 23:00 Temperature 98.2 F Pulse Rate [Left P ulse Oximeter] 90 91 Respiratory Rate 18 18 18 Blood Pressure [Le ft Arm] 114/74 Blood Pressure [Ri ght Arm] Pulse Oximetry [address] [facility] [facility] Room Air Oxygen Flow Rate 1 07/14/23 23:00 07/15/23 02:15 07/15/23 07:00 Temperature 99.2 F 97.3 F L 97.9 F Pulse Rate [Left P ulse Oximeter] 91 95 90 Respiratory Rate 18 18 20 Blood Pressure [Le ft Arm] Blood Pressure [Ri ght Arm] 130/73 124/69 116/63 Pulse Oximetry 88 [address] [facility] Room Air Nasal Cannula Oxygen Flow Rate 1 1.5 07/15/23 07:00 07/15/23 07:00 Temperature Pulse Rate [Left P ulse Oximeter] 90 Respiratory Rate 20 20 Blood Pressure [Le ft Arm] Blood Pressure [Ri ght Arm] Pulse Oximetry 91 Oxygen Delivery Me thod Nasal Cannula Oxygen Flow Rate 1.5 DS: Data Data Completed and Pending Labs on day of discharge: Labs from last 24 hours 07/15/23 06:30 WBC 10.47 RBC 3.36 L Hgb 10.0 L Hct 30.3 L MCV 90 MCH 30 MCHC 33 RDW Coeff of Marcell 14.1 Plt Count 306 Neut % (Auto) 64.3 Lymph % (Auto) 25.2 [place] % (Auto) 6.2 Eos % (Auto) 3.7 Baso % (Auto) 0.2 Neut # (Auto) 6.73 Lymph # (Auto) 2.64 [place] # (Auto) 0.60 Eos # (Auto) 0.39 Baso # (Auto) 0.02 Abs Immat Gran (auto) 0.04 Imm/Tot Granulo (auto) 0.4 Preliminary micro results at discharge 07/12/23 23:40 Blood Culture - Preliminary Blood NO GROWTH AFTER 48 HOURS 07/10/23 20:42 Blood Culture - Preliminary Blood NO GROWTH AFTER 96 HOURS 07/10/23 19:40 Blood Culture - Preliminary Blood NO GROWTH AFTER 96 HOURS Discharge Plan Discharge Disposition: [facility] Date of Admission: 07/10/23 23:23 Attending Provider on Discharge: Autumn Antonio Consulting Providers: Beatrice Rodriguez; Robbie Islas; Carolyn Contreras; Prabhjot Miranda; Juan Louis; Areli Armstrong; Ines Wesley; Cindy French Primary Care Provider: Mat Lowe Condition: Improved Anticipated Discharge Date/Time: 07/15/23 09:32 Discharge Medications: New azithromycin 250 mg Tablet 250 mg PO Q24H Qty: 3 0RF Taper: Z-JACKIE 250 mg Q24H for 4 Days and 0 Hour Rx Instructions: 3 more tabs to complete full course of antibiotic therapy tamsulosin 0.4 mg Capsule 0.4 mg PO DAILY Qty: 30 0RF tamsulosin 0.4 mg capsule 0.4 mg PO QHS Qty: 30 2RF Continued atenolol 50 mg tablet 25 mg PO DAILY simvastatin 20 mg tablet 20 mg PO DAILY omeprazole 20 mg capsule,delayed release(DR/EC) 20 mg PO DAILY loratadine [Claritin] 10 mg tablet 10 mg PO DAILY albuterol sulfate 90 mcg/actuation HFA aerosol inhaler 2 puff inhalation Q6H PRN (Reason: wheezing) Discontinued losartan [Cozaar] 100 mg tablet 100 mg PO DAILY azithromycin 250 mg tablet 250 mg PO DAILY Patient Comments: TAKE 2 TABLETS BY MOUTH ON DAY 1, THEN 1 TABLET DAILY ON DAYS 2- doxycycline hyclate 100 mg tablet 100 mg PO BID Discharge Orders: Discharge Order (Routine); Ordered 07/15/23 Ordered By: Autumn Antonio Additional Instructions: We have STOPPED your Losartan given lower blood pressures during hospital stay. We will CONTINUE 3 more days of antibiotic for your mild pneumonia. We are STARTING Tamsulosin (also called Flomax) for your prostate/urination. You should have labs rechecked in about 10 days. Activity Level: Activity as Tolerated Discharge Diet: Regular Follow Up Appointments: Mat Lowe MD [Primary Care Provider] - Forms: [facility] Info Instructions Admit to: Assisted Living Discharge Potential: Fair Length of Stay: 30-90 days Can use facility standing orders?: Yes Code Status: Full Code Rehab Potential: Fair Therapy: Occupational Therapy Therapy Orders: Evaluate and Treat Therapy Orders Additional Information: outpatient OT for cognitive therapy Oxygen: Yes Oxygen Delivery Method: Nasal Cannula Oxygen Flow Rate: 2L per NC with activity, no O2 at rest needed Urinary Catheter: No Glucose Checks: n/a Next INR: n/a Lab Orders: CBC and CMP in 7 days Signature: Autumn Antonio MD
--- NOTE | 2023-07-15 13:51 | PC.SOCIAL ---
Discharge plan: Called son, Jaden, who confirms they would like pt to go to the [facility] at discharge today. He has spoken with the clinical rehabilitation coordinator there and is aware of the private cost and services provided. Received call from Makenna at [facility] stating they can accept pt today. Discharge orders were secure emailed and transportation was arranged with the facility van at son;s request for 2:00 worm picker today. Son was updated with discharge time and will meet pt at the facility.
== END 2023-07-15 13:57 | DRG 193 ==
LOC: ED 23:09 → MEDSURG 23:23
PROVIDERS: Admitting Provider Family Medicine; Emergency Provider Family Medicine; PCP Internal Medicine; Visit Provider Family Medicine
DX: J18.8 Other pneumonia, unspecified organism (principal); E43 Unspecified severe protein-calorie malnutrition; J44.0 Chronic obstructive pulmonary disease with (acute) lower respiratory infection; I50.22 Chronic systolic (congestive) heart failure; Z68.25 Body mass index [BMI] 25.0-25.9, adult; R79.89 Other specified abnormal findings of blood chemistry; G31.84 Mild cognitive impairment of uncertain or unknown etiology; D50.9 Iron deficiency anemia, unspecified; N40.1 Benign prostatic hyperplasia with lower urinary tract symptoms; R33.8 Other retention of urine; R22.2 Localized swelling, mass and lump, trunk; K21.00 Gastro-esophageal reflux disease with esophagitis, without bleeding; I11.0 Hypertensive heart disease with heart failure; R13.10 Dysphagia, unspecified; E78.5 Hyperlipidemia, unspecified; Z87.891 Personal history of nicotine dependence; Z85.831 Personal history of malignant neoplasm of soft tissue
CPT/HCPCS: 36415; 51701; 51702; 51798; 70450; 71046; 71260; 74177; 76705; 80048; 80053; 80074; 80076; 81001; 82077; 82550; 83605; 83690; 84443; 84484; 85025; 86140; 86703; 87040; 87081; 87086; 87631; 93005; 93306; 94761; 97110; 97116; 97161; 97165; 97530; 97535; 99285; A9270; J0696; J1335; J3370; J7030; J7050; J7120; Q9957; Q9967